=== PATIENT | female | born 1940 | race Caucasian/White ===

== ENCOUNTER → 2017-10-05 12:48 | Outpatient (CLI) | payer MEDICARE, BC, OTHER, SELFPAY ==
--- NOTE | 2017-10-05 12:51 | ADUL_ITS ---
Reason For Study: Surgery aftercare - stricture of artery Right Velocities Ext. Iliac Artery, dist = 52.0 cm./sec. Common Femoral Artery, prox = 46.7 cm./sec. Supf Femoral Artery, prox = 66.8 cm./sec. Supf Femoral Artery, mid = 56.9 cm./sec. Supf Femoral Artery, dist. = 52.8 cm./sec. Profunda Femoral Artery = 48.7 cm./sec. Popliteal Artery, prox. = 141.0 cm./sec. Popliteal Artery, mid = 35.2 cm./sec. Popliteal Artery, dist = 51.1 cm./sec. Post. Tibial Artery, prox = 51.1 cm./sec. Post. Tibial Artery, mid = 49.1 cm./sec. Post. Tibial Artery, dist = 77.8 cm./sec. Peroneal Artery, prox = 35.7 cm./sec. Peroneal Artery, mid = 55.0 cm./sec. Peroneal Artery,dist = 49.5 cm./sec. Ant. Tibial Artery, prox = 53.4 cm./sec. Ant. Tibial Artery, mid = 44.4 cm./sec. Ant. Tibial Artery, dist = 53.4 cm./sec. Procedure Exam performed in department. Interpretation Summary 1. Right leg with no stenosis seen and triphasic flow throughout. Ordering Physician: Aime Hess Referring Physician: Michael Reyez Performed By: Rubina Black RVT
--- NOTE | 2017-10-05 14:40 | LEAS ---
Arterial Study - Arterial Study Arterial Study: Date of scan 10/05/[address] Hess Indication. 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 Next Left lower extremity shows also normal flow at the ankle with duplex showing triphasic flow the posterior tibial with an JIMENEZ 1.13 and triphasic of the dorsalis pedis with an JIMENEZ 0.98 Impression: 1. Bilateral lower extremities with no evidence of significant arterial occlusive disease at rest with an JIMENEZ 1.01 on the right 1.13 on the left
== END ==
PROVIDERS: Family Provider Family Medicine; PCP Family Medicine; Visit Provider Surgery Vascular Surgery
DX: I77.1 Stricture of artery (principal); M79.602 Pain in left arm; D47.3 Essential (hemorrhagic) thrombocythemia; E07.9 Disorder of thyroid, unspecified; I10 Essential (primary) hypertension; Z87.891 Personal history of nicotine dependence; Z48.812 Encounter for surgical aftercare following surgery on the circulatory system
CPT/HCPCS: 93922; 93926

== ENCOUNTER → 2017-10-17 09:45 | Outpatient (CLI) | payer MEDICARE, BC, OTHER, SELFPAY ==
--- NOTE | 2017-10-17 10:00 | RAD_ITS ---
PROCEDURE: Fluoroscopic guided Hip Injection DATE: October 17, 2017. INDICATION: Female, 76 years old. Chronic right hip pain. PHYSICIAN: Adolfo Pena M.D. MEDICATIONS: 6 mg of betamethasone and 3 cc of 1% lidocaine. 2% Lidocaine administered subcutaneously for local anesthesia. ACCESS SITE: Right hip. NEEDLE: 22-gauge spinal needle. FLUOROSCOPY TIME (if supplied): (35 seconds) minutes/seconds FINDINGS: The risks, benefits, and alternatives to the procedure were explained to the patient. The specific risks of bleeding, infection, and neurovascular injury were detailed and accepted. Witnessed informed consent was obtained. A 22-gauge spinal needle was positioned under radiographic fluoroscopic localization. Approximately 2 cc of Isovue-300 instilled for localization purposes. Medication was then injected. The patient tolerated the procedure well without any immediate complications. The patient was placed supine with head elevated and returned to the floor in stable condition. RAD/Inj/Asp Kristofer Jt Should/Hip/Knee IMPRESSION: 1. Successful fluoroscopic guided hip injection. Electronically Signed: Adolfo Pena MD at 10:55 EST Tel [phone], Service support ,
== END ==
PROVIDERS: Family Provider Family Medicine; PCP Family Medicine; Visit Provider Specialist
DX: M16.51 Unilateral post-traumatic osteoarthritis, right hip (principal)
CPT/HCPCS: 20610; 77002; Q9965; J0702

== ENCOUNTER 2017-10-26 12:30 | Emergency (ER) | payer MEDICARE, OTHER, SELFPAY ==
[2017-10-26 12:31] VITALS: BP 158/107; RESP 16; TEMP 37.1; BMI 19.3
[2017-10-26 12:46] VITALS: BP 140/89; PULSE 98; RESP 14; O2SAT 97
--- NOTE | 2017-10-26 13:11 | RAD_ITS ---
STUDY: X-RAY - LEFT WRIST REASON FOR EXAM: Female, 76 years old. Soft tissue swelling. TECHNIQUE: 3 view(s) of the wrist were obtained. COMPARISON: None. FINDINGS: There is demineralization of the radius and ulna. Normal radiocarpal articulation. Normal distal radioulnar articulation. I suspect a nondisplaced avulsion fracture of the triquetrum. Normal carpal articulations. Normal carpometacarpal articulation of the thumb. Normal second through fifth carpometacarpal articulations. There is demineralization of the metacarpal bones. Soft tissue swelling. RAD/Wrist min 3 Views IMPRESSION: I suspect a nondisplaced avulsion fracture of the triquetrum. Soft tissue swelling. Electronically Signed: Adoflo Pena MD at 14:10 EST Tel [phone], Service support ,
--- NOTE | 2017-10-26 13:26 | ED.VISSUMM ---
- ER Visit Summary Date of Service: 10/26/17 Chief Complaint: Left wrist pain History of Present Illness: The patient is a 76 ambidextrous F with 2-3 days of gradual onset pain, redness, swelling in her left wrist. She states it started dorsally and radially, progressing down toward her MCPJ's from there. No fevers or systemic symptoms. No injuries, recent splinters or other wounds, never had this before. No other joints are affected. Hurts to move and palpate. Better to leave it alone. Physical Examination: Well-appearing in no distress. Afebrile with normal vital signs. Her left hand is swollen dorsally, as is the left wrist where there is erythema that blanches and tenderness. The wrist is warmer than the surrounding areas. She is able to perform short arc range of motion of the wrist without any apparent difficulty, she states it is sore to do so. She is limited only at the extremes of wrist flexion/extension. There is no epitrochlear lymphadenopathy or lymphangitis, and NO abscess. The hand is swollen but not especially erythematous or tender. 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 Test Results: White blood count and ESR within normal limits. No bandemia. CRP is elevated at 30. X-ray read by radiology as possible avulsion fracture of the triquetrum. Uric acid level was within normal limits. Emergency Department Course and Treatment: Patient had no injury, therefore fracture of the triquetrum is unlikely the cause of her pain. She did not have improvement with a dose of colchicine. Given the lab results, no specific possible diagnosis is more likely than another. Crystal induced arthritis, cellulitis are both possibilities. I think septic arthritis is less likely given her range of motion, however the treatments of the other 2 possibilities are opposite each other. Therefore I recommended arthrocentesis to evaluate for crystals. We discussed risks and benefits, patient was amenable. I locally anesthetized with 1 cc of plain 1% lidocaine, after prep with isopropyl alcohol, and then prepped again with chlorhexidine, an 18-gauge needle was placed into the joint space distal to the radius from the dorsal aspect, I was only able to aspirate 1 cc of straw-colored clear fluid with a positive string sign. Sent for crystal analysis, which is the only test I will be able to obtain since I had such a little amount of fluid. Crystals returned negative, and lab confirms that no other tests are able to be performed on the fluid available. Will give her an empiric dose of IV Ancef, and discharge her home w/ antibiotics w/ close outpt f/u, returning if worse. She if comfortable w/ this plan. Treatment Plan: Cephalexin 500mg QID x 10d, prn velcro wrist splint, close outpt f/u after the weekend. Disposition: Discharge home Impression: Left wrist cellulitis This note was generated with [employer] dictation software. It may contain incorrect words, spelling, and punctuation that were not noted in review of the chart prior to signing ED Disposition - Plan for ED Patient: Disposition: Home or Assisted Living Chief Complaint: Upper Extremity Injury Instructions: ED Infec Skin Cellulitis Prescriptions: Cephalexin 500 mg PO 4X/DAY #40 cap Referrals: Adam Lowe DO [Primary Care Provider] - 3-5 Days if not improving
[2017-10-26 13:47] LABS: Absolute Lymphocyte Count 0.95 X10^3/ul (0.83-4.51); Absolute Neutrophil Count 5.6 X10^3/uL (2.0-7.7); Basophil# 0.03 X10^3/uL; Basophil% 0.4 % (0-1); Eosinophil# 0.02 X10^3/uL; Eosinophils% 0.3 % (0-5); Hematocrit 39.7 % (37-47); Hemoglobin 13.7 g/dl (12.0-15.0); Lymphocyte # 0.95 X10^3/ul (4.0); Lymphocyte % 12.9 % (19-41); Mean Corp Hgb Conc 34.5 g/gl (32-36); Mean Corpuscular Hgb 43.1 pg (27.0-32.0); Mean Corpuscular Volume 124.8 fL (81-99); Mean Platelet Vol. 10.1 fl (6.2-12.0); Monocyte# 0.71 X10^3/uL; Monocyte% 9.6 % (0-10); Neutrophil # 5.64 X10^3/uL (2.7-7.7); Neutrophil % 76.5 % (47-70); Platelet Count 462 K/mm3 (150-450); RBC Distribution Width CV 12.2 % (11.6-14.6); RBC Distribution Width SD 55.5 fl (35.1-43.9); Red Blood Count 3.18 M/mm3 (4.2-5.4); White Blood Count 7.4 K/mm3 (4.4-11.0)
[2017-10-26 13:48] LABS: POSITIVE COUNT NO; POSITIVE DIFFERENTIAL NO; POSITIVE MORPHOLOGY NO
[2017-10-26 13:50] LABS: Anion Gap 8 (5-15); BUN 21 mg/dL (7-18); BUN/Creat Ratio 16.8 RATIO (10-20); Calcium,Total 9.1 mg/dL (8.5-10.1); Chloride 107 mmol/L (98-107); Creatinine, Serum 1.25 mg/dL (0.55-1.02); EST Glomerular Filtration Rate 44 mL/min (>60); Est Glom Filt Rate - Afr Amer 54 mL/min (>60); Estimated Creatinine Clearance 29.98 ml/min; Glucose 110 mg/dL (74-106); Sodium Level 139 mmol/L (136-145); Uric Acid 4.8 mg/dL (2.6-6.0)
[2017-10-26 14:49] LABS: Erythrocyte Sedimentation Rate 14 mm/hr (0-30)
[2017-10-26 16:33] VITALS: BP 142/78; PULSE 90; RESP 14; O2SAT 98
[2017-10-26 17:22] LABS: Body Fluid QC Type(s) BF1Q; Source- Body Fluid SYNOVIAL
[2017-10-26] MEDS: Cefazolin 1 GM/50 ML BAG IV (17:43)
[2017-10-26 18:17] VITALS: BP 132/68; PULSE 77; RESP 20; O2SAT 96
[2017-10-29 13:14] LABS: Pathologist Review Reviewed
== END 2017-10-26 18:18 | disposition home or self-care (01) ==
PROVIDERS: Emergency Provider Emergency Medicine; Family Provider Family Medicine; PCP Family Medicine
DX: L03.114 Cellulitis of left upper limb (principal); I10 Essential (primary) hypertension
CPT/HCPCS: 20605; 20610; 73110; 80048; 84550; 85025; 85652; 86140; 89060; 96365; 99285; A4216

== ENCOUNTER 2017-11-29 17:14 | Emergency (ER) | payer MEDICARE, OTHER, SELFPAY ==
[2017-11-29 17:16] VITALS: BP 187/98; PULSE 57; RESP 17; TEMP 36.3; O2SAT 97; BMI 19.4
[2017-11-29 17:25] VITALS: BP 180/120; PULSE 58; RESP 16; O2SAT 100
--- NOTE | 2017-11-29 17:32 | ED.VISSUMM ---
- ER Visit Summary Date of Service: 11/29/17 Chief Complaint: [] Elevated blood pressure History of Present Illness: The patient is a 77 F [] history of chronic hypertension she is on diltiazem and clonidine 0.1 mg she indicates she takes her blood pressure multiple times during the day to make sure it is is within normal range she took it today it was about 180/100 she spoke with her wind instrument repairer office and the staff directed her to come to the emergency department Denies head neck chest or abdominal pain numbness weakness no paresthesias she fact has no complaints other than she is thirsty. She indicates she was recently started 1 week ago on additional lisinopril as a new medication, but she did not take that medicine for unspecified reasons. She denies history of NV PE DVT stroke and again she assures me she feels fine and only came to the emergency department because of the instructions of office staff Physical Examination: [] Pressure is elevated to 180/110 she is awake and alert she has no complaints of any kind her head exam is unremarkable cranial nerves are normal the neck is supple the lungs are clear the heart tones are normal abdomen soft nontender upper lower extremities unremarkable her pulses are symmetric she is awake alert moving all 4 extremities normally her NIH is 0 Test Results: [] Emergency Department Course and Treatment: [] All of the above we will discuss case Dr. Fuentes will provide her with clonidine, lisinopril recheck her blood pressure Speak with Dr. Fuentes and I reviewed the patient reports as her med list versus what Dr. Fuentes has prescribed. She is not taking the medications as prescribed He is supposed to be taking diltiazem CD 120 mg twice daily, lisinopril is not new and she is supposed to be taking 5 mg twice daily, Catapres 0.1 mg twice daily and as needed No just prior to giving her the above medications nursing check her blood pressure and without therapy is 150/70 we continue to observe her her blood pressure remained in the normal range we did provide her with 1 dose of lisinopril 10 mg that she is not her medications as prescribed, I also reviewed all of her meds as above answered her questions and she will follow-up with her physicians and return for change in symptoms again she remains completely asymptomatic, I have also cautioned her take her medications as they are prescribed as hypertension can cause life-threatening complications Treatment Plan: [] Disposition: [] Home stable Impression: [] hypertension, noncompliance with medications This note was generated with [employer] dictation software. It may contain incorrect words, spelling, and punctuation that were not noted in review of the chart prior to signing ED Disposition - Plan for ED Patient: Chief Complaint: Hypertension Referrals: Adam Lowe DO [Primary Care Provider] -
[2017-11-29] MEDS: Lisinopril 10 MG Tablet PO (18:09)
--- NOTE | 2017-11-29 18:28 | ED.DEP ---
ED Disposition - Plan for ED Patient: Chief Complaint: Hypertension Instructions: ED HTN Established Referrals: Adam Lowe DO [Primary Care Provider] -
[2017-11-29 18:38] VITALS: BP 153/98; PULSE 52; RESP 16; O2SAT 96
== END 2017-11-29 18:43 | disposition home or self-care (01) ==
PROVIDERS: Emergency Provider Emergency Medicine; Family Provider Family Medicine; PCP Family Medicine
DX: I10 Essential (primary) hypertension (principal); Z91.14 Patient's other noncompliance with medication regimen
CPT/HCPCS: 99282

== ENCOUNTER → 2017-12-18 15:40 | Outpatient (CLI) | payer MEDICARE, OTHER, SELFPAY ==
[2017-12-18 16:45] LABS: AST(SGOT) 18 U/L (15-37); Alanine Aminotransfer ALT/SGPT 17 U/L (13-56); Albumin, Serum 3.9 g/dL (3.2-5.0); Alkaline Phosphatase 76 U/L (45-117); Anion Gap 9 (5-15); BUN 23 mg/dL (7-18); BUN/Creat Ratio 19.3 RATIO (10-20); Calcium,Total 8.7 mg/dL (8.5-10.1); Chloride 106 mmol/L (98-107); Creatinine, Serum 1.19 mg/dL (0.55-1.02); EST Glomerular Filtration Rate 47 mL/min (>60); Est Glom Filt Rate - Afr Amer 57 mL/min (>60); Glucose 96 mg/dL (74-106); Potassium 3.7 mmol/L (3.5-5.1); Protein, Total 7.9 g/dL (6.4-8.2); Sodium Level 137 mmol/L (136-145); Thyroid Stim Hormone (TSH) 2.81 uIU/mL (0.358-3.74)
== END ==
PROVIDERS: Family Provider Family Medicine; PCP Family Medicine; Visit Provider Family Medicine
DX: E03.9 Hypothyroidism, unspecified (principal); I10 Essential (primary) hypertension; E83.42 Hypomagnesemia
CPT/HCPCS: 36415; 80053; 83735; 84443

== ENCOUNTER 2018-01-22 13:12 | Emergency (ER) | payer MEDICARE, OTHER, SELFPAY ==
[2018-01-22 13:13] VITALS: BP 169/108; PULSE 110; RESP 18; TEMP 36.6; O2SAT 98; BMI 20.2
--- NOTE | 2018-01-22 13:57 | EKG12_ITS ---
Test Reason : HTN Blood Pressure : / mmHG Vent. Rate : 098 BPM Atrial Rate : 098 BPM P-R Int : 194 ms QRS Dur : 088 ms QT Int : 354 ms P-R-T Axes : 054 028 077 degrees QTc Int : 451 ms Normal sinus rhythm Normal ECG Confirmed by ELVIS RIVERA ([id number]), desk editor ARACELIS BEASLEY ([id number]) on 02/04/2018 5:00:16 PM Referred By: MACEY Confirmed By:ELVIS RIVERA
[2018-01-22 14:20] VITALS: BP 140/100; PULSE 99; RESP 14; O2SAT 97
--- NOTE | 2018-01-22 14:25 | ED.DCSUM_ITS ---
- ER Visit Summary Date of Service: 01/22/18 Chief Complaint: High blood pressure History of Present Illness: The patient is a 77 F presenting with hypertension. She states that this has been ongoing for the past month. She has been taking her blood pressure at home and it has been running with a systolic in 200s and diastolic in the 100s. She has not been recording the numbers. She states she has had intermittent chest pain and headache but no chest pain or headache today. She is unable to see her primary care physician because she changed insurance. She is on clonidine, Cardizem, lisinopril. Denies other complaints. Physical Examination: Vitals are stable. Blood pressure 169/104. patient is afebrile. Alert no acute distress. HEENT exam is unremarkable. Neck is supple. Lungs are clear and equal bilaterally. Heart is regular rate and rhythm. Abdomen is soft nontender nondistended. Extremities are unremarkable. Skin is warm and dry. No focal neurologic deficit. Remainder of exam is unremarkable. Emergency Department Course and Treatment: EKG is sinus rate of 98 with no acute ischemic changes. Chemistries show BUN 24, creatinine 1.26 which is at her baseline. Troponin is negative. Her repeat blood pressure is 140/[address] medication. Discuss[address] with Dr. Fry who recommends increasing her lisinopril to 10 mg twice daily. Advised to record her blood pressures and follow-up in the office later this week. Advised return to ED for any worsening complaints. Disposition: Discharge home Impression: Hypertension This note was generated with [employer] dictation software. It may contain incorrect words, spelling, and punctuation that were not noted in review of the chart prior to signing ED Disposition - Plan for ED Patient: Chief Complaint: Hypertension Instructions: ED HTN Established Referrals: Adam Lowe DO [Primary Care Provider] - Jacinto Fry MD [STAFF PHYSICIAN] -
[2018-01-22 15:03] LABS: Anion Gap 7 (5-15); BUN 24 mg/dL (7-18); Calcium,Total 9.3 mg/dL (8.5-10.1); Chloride 105 mmol/L (98-107); Creatinine, Serum 1.26 mg/dL (0.55-1.02); EST Glomerular Filtration Rate 44 mL/min (>60); Est Glom Filt Rate - Afr Amer 53 mL/min (>60); Estimated Creatinine Clearance 30.51 ml/min; Glucose 119 mg/dL (74-106); Potassium 3.9 mmol/L (3.5-5.1); Sodium Level 138 mmol/L (136-145)
--- NOTE | 2018-01-22 15:19 | ED.DEP ---
ED Disposition - Plan for ED Patient: Chief Complaint: Hypertension Instructions: ED HTN Established Referrals: Adam Lowe DO [Primary Care Provider] - Jacinto Fry MD [STAFF PHYSICIAN] -
[2018-01-22 15:35] VITALS: BP 174/90; PULSE 76; RESP 18; O2SAT 99
== END 2018-01-22 15:36 | disposition home or self-care (01) ==
PROVIDERS: Emergency Provider Emergency Medicine; Family Provider Family Medicine; PCP Family Medicine
DX: I10 Essential (primary) hypertension (principal); K21.9 Gastro-esophageal reflux disease without esophagitis; E03.9 Hypothyroidism, unspecified; F32.9 Major depressive disorder, single episode, unspecified; F41.9 Anxiety disorder, unspecified; Z79.82 Long term (current) use of aspirin; Z79.899 Other long term (current) drug therapy
CPT/HCPCS: 80048; 84484; 93005; 99283; A4216

== ENCOUNTER 2018-02-25 17:30 | Emergency (ER) | payer MEDICARE, OTHER, SELFPAY ==
[2018-02-25 17:32] VITALS: BP 158/105; PULSE 98; RESP 17; TEMP 36.6; O2SAT 95; BMI 19.2
--- NOTE | 2018-02-25 18:39 | ED.VISSUMM ---
- ER Visit Summary Date of Service: 02/25/18 Chief Complaint: Constipation History of Present Illness: The patient is a 77 F who presents with constipation. She is felt this way for a couple of weeks. She states she tries to go to the bathroom but she cannot get a stool out. She is cramping in her suprapubic area. Denies any nausea, vomiting. She denies urinary symptoms. She has not had a fever. She tried two stool softeners at home but this did not help. Physical Examination: Vital signs reviewed. HEENT exam unremarkable. Heart is regular rate and rhythm without murmurs. Lungs are clear to auscultation. Abdomen is soft with mild suprapubic tenderness to palpation. No distention. Extremities reveal no edema. Skin exam normal. Neurologic exam normal. Test Results: None performed Emergency Department Course and Treatment: Patient received a soapsuds enema. She had a large bowel movement and she feels much better. I will put her on MiraLAX at home. She will follow-up with her PCP Treatment Plan: [] Disposition: Discharge Impression: Constipation This note was generated with [employer] dictation software. It may contain incorrect words, spelling, and punctuation that were not noted in review of the chart prior to signing ED Disposition - Plan for ED Patient: Chief Complaint: Constipation Referrals: Adam Lowe DO [Primary Care Provider] -
--- NOTE | 2018-02-25 19:45 | ED.DEP ---
ED Disposition - Plan for ED Patient: Disposition: Home or Assisted Living Chief Complaint: Constipation Instructions: ED Constipation Prescriptions: Polyethylene Glycol 3350 [Miralax] 17 gm PO DAILY #30 packet Referrals: Adam Lowe DO [Primary Care Provider] -
[2018-02-25 19:56] VITALS: BP 150/98; PULSE 76; RESP 16; O2SAT 98
== END 2018-02-25 19:58 | disposition home or self-care (01) ==
PROVIDERS: Emergency Provider Emergency Medicine; Family Provider Family Medicine; PCP Family Medicine
DX: K59.00 Constipation, unspecified (principal)
CPT/HCPCS: 99285

== ENCOUNTER → 2018-03-07 08:41 | Outpatient (CLI) | payer MEDICARE, OTHER, SELFPAY ==
--- NOTE | 2018-03-07 08:50 | RAD_ITS ---
PROCEDURE: Fluoroscopic guided Hip Injection DATE: March 07, 2018. INDICATION: Female, 77 years old. Chronic right hip pain. PHYSICIAN: Adolfo Pena M.D. MEDICATIONS: 6 mg of betamethasone and 3 cc of 1% lidocaine. 2% lidocaine administered subcutaneously for local anesthesia. ACCESS SITE: Right hip. NEEDLE: 22-gauge spinal needle. FLUOROSCOPY TIME (if supplied): (32 seconds) minutes/seconds FINDINGS: The risks, benefits, and alternatives to the procedure were explained to the patient. The specific risks of bleeding, infection, and neurovascular injury were detailed and accepted. Witnessed informed consent was obtained. A 22-gauge spinal needle was positioned under radiographic fluoroscopic localization. Approximately 2 cc of azygos 300 instilled for localization purposes. Medication was then injected. The patient tolerated the procedure well without any immediate complications. The patient was placed supine with head elevated and returned to the floor in stable condition. RAD/Inj/Asp Kristofer Jt Should/Hip/Knee IMPRESSION: 1. Successful fluoroscopic guided hip injection. Electronically Signed: Adolfo Pena MD at 10:36 EDT Tel [phone], Service support ,
== END ==
PROVIDERS: Family Provider Family Medicine; PCP Family Medicine; Visit Provider Physician Assistant
DX: M16.51 Unilateral post-traumatic osteoarthritis, right hip (principal)
CPT/HCPCS: 20610; 77002; Q9965; J0702

== ENCOUNTER 2018-03-11 16:46 | Emergency (ER) | payer MEDICARE, OTHER, SELFPAY ==
[2018-03-11 16:47] VITALS: BP 188/121; PULSE 94; RESP 21; TEMP 36.6; O2SAT 98; BMI 19.3
[2018-03-11 17:04] VITALS: BP 165/116; PULSE 91; RESP 16; O2SAT 97
[2018-03-11] MEDS: cloNIDine HCl 0.1 MG Tablet PO (17:47)
--- NOTE | 2018-03-11 18:06 | ED.DCSUM_ITS ---
- ER Visit Summary Date of Service: 03/11/18 Chief Complaint: Elevated blood pressure History of Present Illness: The patient is a 77 F who presents with elevated blood pressure. She has a history of poorly controlled hypertension. She checks her blood pressure multiple times a day. She is on multiple medications however she does not have her list with her and was unable to tell me exactly what she takes and when. However she does note that she takes lisinopril twice a day and diltiazem twice a day. She takes clonidine as needed. It is unclear how often or when she takes this. She is asymptomatic. She notes that she was severely elevated last night and reports her diastolic blood pressure was 140. She was at an orthopedic appointment today her blood pressure was elevated shows she was advised to be evaluated in the emergency department. Physical Examination: Initial blood pressure 188/121, vitals otherwise unremarkable Heart regular rate and rhythm Lungs clear Abdomen soft Alert Patient does appear slightly anxious repetitively looking at the monitor Test Results: Not indicated Emergency Department Course and Treatment: Patient presents with asymptomatic elevated blood pressure. This is been a recurrent issue for her. She notes that she is supposed to take clonidine when her blood pressure is very high as needed. She did not take this today. She was given 0.1 mg of oral clonidine and on repeat her blood pressure is 155/98. I do believe there is likely a component of whitecoat hypertension as well. She was advised to follow-up with her [employer] soa developer who manages her blood pressure and to call tomorrow for an appointment. She understands to return for new or worsening symptoms and was discharged home. Treatment Plan: [] Disposition: Discharge Impression: Uncontrolled hypertension This note was generated with [employer] dictation software. It may contain incorrect words, spelling, and punctuation that were not noted in review of the chart prior to signing ED Disposition - Plan for ED Patient: Chief Complaint: Hypertension Referrals: Adam Lowe DO [Primary Care Provider] -
--- NOTE | 2018-03-11 18:06 | ED.DEP ---
ED Disposition - Plan for ED Patient: Chief Complaint: Hypertension Instructions: ED Hypertension Conf Out Of Control Referrals: Adam Lowe DO [Primary Care Provider] - Jacinto Fry MD [STAFF PHYSICIAN] -
[2018-03-11 18:13] VITALS: BP 143/86; PULSE 87; RESP 14; O2SAT 99
== END 2018-03-11 18:14 | disposition home or self-care (01) ==
PROVIDERS: Emergency Provider Emergency Medicine; Family Provider Family Medicine; PCP Family Medicine
DX: I10 Essential (primary) hypertension (principal); F41.9 Anxiety disorder, unspecified
CPT/HCPCS: 99283

== ENCOUNTER 2018-04-05 16:00 | Inpatient (IN) | payer MEDICARE, OTHER, SELFPAY ==
[2018-04-05] VITALS (18 sets, daily range): BP systolic 130–190; BP diastolic 80–137; PULSE 61–99; RESP 10–22; TEMP 36.1–36.7; O2SAT 94–100; BMI 19.3; BMI 18.8; BMI 18.9
--- NOTE | 2018-04-05 16:19 | CT_ITS ---
STUDY: CTA NECK WITH CONTRAST REASON FOR EXAM: Female, 77 years old. Hypertension and right arm weakness RADIATION DOSAGE (If Supplied By Facility): CTDIvol = ( 27.63 ) mGy, DLP = ( 491.02 ) mGycm TECHNIQUE: CT angiography with multi-detector data acquisition was performed from the aortic arch to the skull base following intravenous administration of 100 ml of Isovue 370 contrast. MIP images were reconstructed from the axial data set. Post-processing of the angiographic images was performed, with multiplanar reformation and 3D reconstruction. Individualized dose optimization techniques were used for this CT. COMPARISON: None. FINDINGS: AORTIC ARCH: Normal visualized aortic arch. Normal origins of the brachiocephalic, left common carotid, and left subclavian arteries. RIGHT CAROTID ARTERIES: Normal right common carotid artery (CCA). Normal right common carotid bulb. Normal origin of the right internal carotid (ICA) artery without a hemodynamically significant stenosis. Normal visualized cervical portion of the right internal carotid artery. Normal origin of the right external carotid artery (ECA). LEFT CAROTID ARTERIES: Normal left common carotid artery (CCA). Normal left common carotid bulb. Normal origin of the left internal carotid (ICA) artery without a hemodynamically significant stenosis. Normal visualized cervical portion of the left internal carotid artery. Normal origin of the left external carotid artery (ECA). VERTEBRAL ARTERIES: Normal bilateral vertebral arteries. Moderate dextroconvex scoliosis. CT/CTA Neck W/WO Contrast IMPRESSION: Normal bilateral cervical carotid and vertebral arteries. Electronically Signed: Tashi Cary MD at 18:59 EDT , Service support ,
--- NOTE | 2018-04-05 16:19 | CT_ITS ---
STUDY: CTA OF THE BRAIN REASON FOR EXAM: Female, 77 years old. Right arm weakness, hypertension RADIATION DOSAGE (If Supplied By Facility): CTDIvol = ( 44.99 ) mGy, DLP = ( 734.24 ) mGycm TECHNIQUE: CT angiography was performed with a multi-detector CT scanner. Data acquisition was obtained from the skull base through the vertex following intravenous administration of 100 ml of Isovue 370. MIP images were reconstructed from the axial data set. Post-processing of the angiographic images was performed, with multiplanar reformation and 3D reconstruction. Individualized dose optimization techniques were used for this CT. COMPARISON: None. FINDINGS: The soft tissues are unremarkable. The osseous structures are unremarkable. Normal size ventricles and extra-axial spaces for the patient's age. There are scattered areas of decreased attenuation within the white matter tracts of the supratentorial brain. There are a few hypodensities in the basal ganglia, and in the right thalamus. No abnormalities are seen in the brainstem. The cerebellum is unremarkable. There are moderate vascular calcifications. The choroid plexus on the right is more dense than the left. There are prominent venous structures in the posterior fossa. There is no intracranial hemorrhage. There are no findings of acute ischemia. There is a 2 cm retention cyst in the lower right maxillary sinus. There is minimal fluid or mucosal thickening in the left sphenoid sinus. The petrous carotid arteries are normal in appearance. Normal right cavernous carotid artery with a normal supraclinoid bifurcation. Normal left cavernous carotid artery with a normal supraclinoid bifurcation. Normal right A1 segment of the anterior cerebral artery. Normal left A1 segment of the anterior cerebral artery. Normal intact anterior communicating artery (ACOM). Normal bilateral A2 segments of the anterior cerebral arteries. Normal right M1 and M2 segments of the middle cerebral arteries, with a normal M1 bifurcation. Normal left M1 and M2 segments of the middle cerebral arteries, with a normal M1 bifurcation. Normal right posterior communicating artery (PCOM). There is a persistent origin of the left posterior cerebral artery which is a normal anatomic variant. Normal bilateral distal vertebral arteries. The basilar artery is tortuous but patent. The visualized bilateral superior cerebellar (SCA) arteries are within normal limits. Normal bilateral P1, P2 and visualized P3 segments of the posterior cerebral arteries. There is no demonstrated aneurysm of the [place]. There is no demonstrated enhancement of the visualized brain. CT/CTA Head W/WO Contrast IMPRESSION: There is no demonstrated aneurysm or hemodynamically significant stenosis. There is no acute hemorrhage. Small hypodensities in the basal ganglia and in the right thalamus likely represent age indeterminate lacunar infarcts. MRI can be obtained for further evaluation. There is mild left sphenoid sinusitis. Electronically Signed: Gilma Llanes MD at 18:42 EDT Tel Direct: [phone], Service support ,
--- NOTE | 2018-04-05 16:25 | ED.DCSUM_ITS ---
- ER Visit Summary Date of Service: 04/05/18 Chief Complaint: Hypertension, right arm weakness History of Present Illness: The patient is a 77 F whose had 3 episodes this past week of sudden right arm weakness. She states it just hangs to her side and she cannot move it. This lasts for a few minutes and then resolves. Patient is very anxious stating that she had several family members with strokes. She states her blood pressure has been elevated today and difficult to control. She has taken 3 doses of her clonidine 0.1 mg each over the course of the day, most recent dose just prior to arrival. Physical Examination: Vital signs include blood pressure 171/137, temperature 97 , heart rate 99, respiratory rate 22, pulse ox 97% on room air. Patient is sitting upright in bed. She is anxious but in no acute distress. Head and neck examination is unremarkable. Heart is regular rate and rhythm. Lung sounds are clear. Abdomen is soft and nontender. Neuro exam reveals an NIH score of 0 at this time. Test Results: EKG is sinus at 83 with no sign of acute ischemia. Portable chest x-ray shows no acute process. CBC is normal. Chemistry studies significant for creatinine 1.25. Coags normal. Troponin negative. CTA of the head shows no stenosis or hemorrhage. There is age and remote lacunar infarction noted. CTA of the neck is normal. Emergency Department Course and Treatment: Patient was not given anything further for blood pressure she had just taken clonidine before arrival. Blood pressure came down to 130/81. On repeat exam, blood pressure is back up to the 150s-170s systolic. This will be closely monitored. I recommended hospitalization for further stroke/TIA workup. Treatment Plan: [] Disposition: Admit Impression: TIAs This note was generated with [employer] dictation software. It may contain incorrect words, spelling, and punctuation that were not noted in review of the chart prior to signing ED Disposition - Plan for ED Patient: Chief Complaint: Hypertension Referrals: Adam Lowe DO [Primary Care Provider] -
--- NOTE | 2018-04-05 16:45 | RAD_ITS ---
STUDY: X-RAY CHEST REASON FOR EXAM: Female, 77 years old. Chest pain, hypertension TECHNIQUE: A single frontal view of the chest was obtained. COMPARISON: July 05, 2017 FINDINGS: The lungs are underaerated. There are no focal airspace opacities. There is no demonstrated pleural abnormality. The cardiac silhouette is normal in size. The mediastinum and hilar regions are unremarkable. Normal visualized pulmonary arteries. There is atherosclerotic calcification of the thoracic aorta. There are diffuse degenerative changes of the visualized spine. There is S-shaped scoliosis of the spine with levoscoliosis of the thoracic spine and dextroscoliosis of the lumbar spine. The visualized ribs, clavicles, and shoulders are unremarkable. Cholecystectomy clips are present. RAD/Chest 1 View IMPRESSION: No acute cardiopulmonary abnormalities. Electronically Signed: Gilma Llanes MD at 17:15 EDT Tel Direct: [phone], Service support ,
[2018-04-05 16:56] LABS: Bedside Glucose 96 mg/dL (70-110)
[2018-04-05 17:10] LABS: Absolute Lymphocyte Count 0.91 X10^3/ul (0.83-4.51); Basophil# 0.01 X10^3/uL; Basophil% 0.3 % (0-1); Eosinophil# 0.01 X10^3/uL; Eosinophils% 0.3 % (0-5); Hematocrit 37.9 % (37-47); Hemoglobin 12.7 g/dl (12.0-15.0); Lymphocyte # 0.91 X10^3/ul (4.0); Lymphocyte % 29.4 % (19-41); Mean Corp Hgb Conc 33.5 g/gl (32-36); Mean Corpuscular Hgb 40.4 pg (27.0-32.0); Mean Corpuscular Volume 120.7 fL (81-99); Monocyte# 0.21 X10^3/uL; Monocyte% 6.8 % (0-10); Neutrophil # 1.95 X10^3/uL (2.7-7.7); Neutrophil % 62.9 % (47-70); Platelet Count 317 K/mm3 (150-450); RBC Distribution Width CV 13.2 % (11.6-14.6); RBC Distribution Width SD 57.3 fl (35.1-43.9); Red Blood Count 3.14 M/mm3 (4.2-5.4); White Blood Count 3.1 K/mm3 (4.4-11.0)
[2018-04-05 17:11] LABS: Anion Gap 8 (5-15); BUN 27 mg/dL (7-18); BUN/Creat Ratio 21.6 RATIO (10-20); Calcium,Total 8.8 mg/dL (8.5-10.1); Chloride 107 mmol/L (98-107); Creatinine, Serum 1.25 mg/dL (0.55-1.02); EST Glomerular Filtration Rate 44 mL/min (>60); Est Glom Filt Rate - Afr Amer 54 mL/min (>60); Estimated Creatinine Clearance 29.41 ml/min; Glucose 96 mg/dL (74-106); POSITIVE COUNT NO; POSITIVE DIFFERENTIAL NO; POSITIVE MORPHOLOGY NO; Potassium 3.8 mmol/L (3.5-5.1); Sodium Level 139 mmol/L (136-145)
[2018-04-05 17:14] LABS: International Normalized Ratio 0.9; Prothrombin Time (Protime)PT. 12.4 SECONDS (11.7-14.9)
[2018-04-05 17:15] LABS: Partial Thromboplast Time 30.4 Seconds (24.1-36.2)
--- NOTE | 2018-04-05 19:36 | PCM.HP.STD ---
Problem List (1) Stroke-like symptoms Status: Acute History of Present Illness Date of Admission: 04/05/18 Chief Complaint: Strokelike symptoms x 1 week The patient is a 77 year old F with a significant history of CKD, hypertension, seizures,hypothyroidism, DVT, CKD, depression/anxiety, PVD, and Essential Thrombocytosis who presents because of a right arm weakness ?1 week. Patient states that 3 times in 3 days of this week (week of admission ) her right was momentarily weak. The last time she had the weakness of her right arm was 2 days ago. Also, she thinks that she may have some blurry vision this week. She denies any speech changes or confusion. Because of a family history of stroke, her sister advised today to come to the emergency department. Also she notes elevated blood pressure at home which has been difficult to control with her home Clonidine. Past Medical History Past Medical History (Chronic Problems): Chronic Problems (Last Updated 04/06/18 @ 03:47 by Wilder Mayfield MD) C. difficile colitis (Chronic) Hypothyroidism (Chronic) Hypertension (Chronic) Depression (Chronic) Anxiety (Chronic) History of DVT (deep vein thrombosis) (Chronic) PVD (peripheral vascular disease) (Chronic) CKD (chronic kidney disease), stage III (Chronic) Osteopenia (Chronic) Medical History: Medical History (Last Updated 04/06/18 @ 03:47 by Wilder Mayfield MD) Essential thrombocytosis D47.3 Allergies dichloralphenazone [From Midrin] Allergy (Verified 04/05/18 16:01) Other isometheptene mucate [From Midrin] Allergy (Verified 04/05/18 16:01) Other lactose Adverse Reaction (Verified 04/05/18 16:01) Upset Stomach shellfish derived Adverse Reaction (Verified 04/05/18 16:01) Vomiting Home Medications: Ambulatory Orders Medication Instructions Recorded Anagrelide HCl [Agrylin] 0.5 mg PO TID 01/22/18 Aspirin [Aspirin, Baby] 81 mg PO DAILY@0800 01/22/18 Buspirone HCl 30 mg PO BID 01/22/18 Cilostazol [Pletal] 100 mg PO BIDAC 01/22/18 Clonidine HCl 0.1 mg PO BID 01/22/18 Colestipol Tablet [Colestid Tablet] 2 gm PO TID 01/22/18 Diltiazem HCl [Cardizem] 120 mg PO BID 01/22/18 Fluoxetine [Prozac] 20 mg PO DAILY 01/22/18 Hydroxyurea [Hydrea] 500 mg PO BID 01/22/18 Levothyroxine [Synthroid] 75 mcg PO DAILY 01/22/18 Lisinopril [Zestril] 10 mg PO DAILY 01/22/18 Mirtazapine [Remeron] 15 mg PO QHS 01/22/18 Pantoprazole Sodium [Protonix] 40 mg PO DAILY 01/22/18 Topiramate [Topamax] 100 mg PO BID 01/22/18 Polyethylene Glycol 3350 [Miralax] 17 gm PO DAILY PRN 04/05/18 Surgical History: hysterectomy - Adenoidectomy, tonsillectomy, - - Right Hip cephalo medullary nail, T+A, Hysterectomy, Cholecystectomy (open). Psychiatric History: Anxiety, Depression [employer] History: No pertinent [employer] history Smoking Status: Former smoker Tobacco Use: Non-smoker Alcohol: Occasional - *Family History Maternal History Items: Stroke Paternal History Items: Heart Disease Review of Systems Constitutional: Denies: Chills, Fever, Weight Change Eyes: Reports: Blurred vision - Not present at the moment HEENT: Denies: Head Aches, Sinus Congestion, Sinus Drainage Cardiovascular: Denies: Chest Pain, Palpitations Respiratory: Denies: Cough, Shortness of breath at rest, Sputum production Gastrointestinal: Denies: Abdominal Pain, Nausea, Vomiting Genitourinary: Denies: Dysuria Musculoskeletal: Denies: Joint Pain, Joint Tenderness Skin: Denies: Rash, Wounds Neurological: Reports: Focal weakness - Not present at the moment Psychiatric: Denies: Anxiety, Depression, Homicidal Ideations, Suicidal Ideations Hematologic/ Lymphatic: Denies: Easy Bruising, Easy Bleeding VTE Information - Inpt Only VTE Present on Admission: No VTE Mechan Device Prophylaxis: SCD's VTE Pharm Prophylaxis ordered?: Yes Patient Problems: Active and Suspected Problems (Last Updated 04/06/18 @ 03:47 by Wilder Mayfield MD) Stroke-like symptoms (Acute) - Physical Exam General: Alert, Oriented x3, Cooperative HEENT: Atraumatic, PERRLA, EOMI, Normocephalic Neck: Supple, No JVD, Negative Carotid Bruits Lungs: Clear to auscultation, Normal air movement Cardiovascular: Regular rate, No murmurs, Tachycardic Abdomen: Bowel Sounds Present, Soft, Non Tender Extremities: No edema, Capillary Refill Less than 3 Seconds Skin: No rashes, No breakdown Musculoskeletal: No Tenderness to Palpation of Joints or Extremities Neurological: Cranial nerves II-XII grossly intact, Deep Tendon Reflexes 2+/4 and Symmetrical, Neuro grossly intact, Muscle tone normal Psych/Mental Status: Anxious Vital Signs Temp Pulse Resp BP Pulse Ox 97 F L 69 14 153/100 H 97 04/05/18 16:02 04/05/18 19:00 04/05/18 19:00 04/05/18 19:00 04/05/18 19:00 Oxygen Delivery Method Room Air Weight: 47.9 kg Body Mass Index (BMI) 19.3 Finger Stick Blood Glucose 96 Laboratory Tests Past 24 Hrs 04/05/18 04/05/18 04/05/18 16:35 16:35 16:35 WBC 3.1 L RBC 3.14 L Hgb 12.7 Hct 37.9 MCV 120.7 H MCH 40.4 H MCHC 33.5 RDW 13.2 RDW Differential 57.3 H Plt Count 317 MPV 10.0 Immature Gran % (Auto) 0.300 Neut % (Auto) 62.9 Lymph % (Auto) 29.4 Cooke % (Auto) 6.8 Eos % (Auto) 0.3 Baso % (Auto) 0.3 Absolute Neuts (auto) 2.0 Absolute Lymphs (auto) 0.91 Total Counted Not Reportable PT 12.4 INR 0.9 APTT 30.4 Sodium 139 Potassium 3.8 Chloride 107 Carbon Dioxide 24.0 Anion Gap 8 BUN 27 H Creatinine 1.25 H Estim Creat Clear Calc 29.41 Est GFR (MDRD) Af Amer 54 L Est GFR (MDRD) Non-Af 44 L BUN/Creatinine Ratio 21.6 H Glucose 96 Calcium 8.8 Troponin I < 0.015 POC Glucose 04/05/18 16:46 POC Glucose 96 Assessment/Plan All Active Problems (Last Updated 04/06/18 @ 03:47 by Wilder Mayfield MD) Stroke-like symptoms (Acute) Hip fracture (Resolved) The patient is a 77 year old F with a significant history of CKD, hypertension, seizures,hypothyroidism, DVT, CKD, depression/anxiety, PVD, and Essential Thrombocytosis who presents because of a right arm weakness and probable blurry vision concerning for TIA, evolving stroke or stroke. Strokelike symptoms CT/CTA head and neck did not show acute pathology but likely age-indeterminate lacunar infarcts Echo ordered. MRI of brain ordered. Ativan enroute to MRI because of anxiety. Aspirin and Lipitor ordered ST/PT/OT therapy. Neurology consult. Malignant hypertension Highest blood pressure in emergency department 190/121 Reportedly her last focal weakness was 2 days ago. Home blood pressure medication lisinopril, clonidine and diltiazem resumed. Labetalol as needed ordered. Seizures Seizure precautions Topamax continued PVD Cilostazol continued Essential thrombocytosis Review of records showed macrocytosis, elevated platelet counts or normal platelet count. Patient follows up with Dr. Langston, veneer stock layer at [facility] Anagrelide, hydroxyurea and aspirin continued Hypothyroidism Synthroid continued Depression/anxiety Buspirone, fluoxetine and mirtazapine continued CKD Review of records show that her creatinine is at baseline. DVT prophylaxis Subcutaneous heparin. Code Visit OBSV E&M: 82013 Initial observation care L3
--- NOTE | 2018-04-05 20:16 | NURSING ---
Called [facility] ED charge nurse, elfego to send patient to the floor.
--- NOTE | 2018-04-05 20:37 | MRI_ITS ---
STUDY: MRI BRAIN WITHOUT CONTRAST REASON FOR EXAM: Female, 77 years old. slurred speech, seizures x 1 week. TECHNIQUE: Standardized multiplanar fat and water weighted pulse sequences were obtained. COMPARISON: 04/05/2018 CT of the head FINDINGS: Normal size of the ventricles and extra-axial spaces for the patient's age. There are multiple white matter hyperintensities, distributed throughout the deep white matter tracts of the cerebral hemispheres, consistent with moderate chronic white matter ischemic changes. There is a 3 mm focus of restrained diffusion at the right centrum semiovale (axial image #20 series 4) there is Doppler signal on ADC map, consistent with acute infarction. There is bilateral thalamic chronic lacunar infarcts. Normal flow voids within the major intracranial circulation suggesting patency by spin echo criteria. Normal sella turcica, pituitary gland, infundibular stalk, optic chiasm and hypothalamus. Normal tectal plate and pineal gland. Normal midbrain, sabi and medulla. There is mild prominence of the vermian folia, consistent with atrophy of the vermis. The cerebellar hemispheres are normal. Normal basal cisterns. Normal bilateral temporal bones. Normal bilateral internal auditory canals. MRI/Brain without Contrast IMPRESSION: Acute lacunar infarct of the right centrum semiovale. Moderate chronic microvascular ischemic changes and lacunar infarcts. N.B. : The above information has been verbally conveyed by Saqib Campbell MD to karina liang, Referring Physician, on 04/06/2018 11:14:34 (ET). Electronically Signed: Saqib Campbell MD at 11:14 EDT Tel , Service support ,
--- NOTE | 2018-04-05 20:37 | ECHOD_ITS ---
Reason For Study: TIA/CVA Procedure This was a 2D Doppler, Color Flow transthoracic echocardiogram. Exam performed portable in patient room. Left Ventricle Normal LV size. Mild concentric left ventricular hypertrophy. Left ventricular systolic function is normal. The estimated ejection fraction is 65 %. Stage 1 diastolic dysfunction. Right Ventricle Normal size and thickness. Normal systolic function. Atria Normal left atrium. Normal right atrium. Mitral Valve The mitral valve is structurally normal. No prolapse or stenosis seen. Tricuspid Valve Mild tricuspid valve insufficiency. Normal pulmonary artery pressure. Aortic Valve Aortic sclerosis, no stenosis. Pulmonic Valve Trivial pulmonic valve insufficiency. Great Vessels Normal aortic root. Pericardium/Pleural Epicardial fat. Medication Performed a rapid injection of agitated mix of 9 cc saline and 1cc air to assess for atrial septal defect. MMode/2D Measurements & Calculations LVIDd: 3.4 cm IVSd: 1.3 cm LVOT diam: 2.0 cm LVIDs: 1.9 cm LVPWd: 0.94 cm LVOT area: 3.2 cm2 FS: 44.8 % Ao root diam: 3.0 cm LAV(MOD-sp2): 55.0 ml LA dimension: 3.4 cm Aortic Valve Planimetry: 1.4 cm2 Time Measurements MV dec time: 0.22 sec Doppler Measurements & Calculations MV E max josias: 58.2 cm/sec Lat Peak E' Josias: 8.5 cm/sec Med Peak E' Josias: 2.6 cm/sec MV A max josias: 118.6 cm/sec E/E' lat: 6.9 E/E' med: 22.0 MV E/A: 0.49 MV V2 max: 122.3 cm/sec MV P1/2t max josias: 84.7 cm/sec Ao V2 max: 169.5 cm/sec MV max P.0 mmHg MV P1/2t: 97.6 msec Ao max P.5 mmHg MV V2 mean: 67.4 cm/sec MV dec slope: 254.2 cm/sec2 Ao V2 mean: 116.2 cm/sec MV mean P.1 mmHg MVA(P1/2t): 2.3 cm2 Ao mean P.1 mmHg MV V2 VTI: 28.1 cm Ao V2 VTI: 32.7 cm MVA(VTI): 3.2 cm2 MARYCRUZ(I,D): 2.8 cm2 MARYCRUZ(V,D): 2.6 cm2 LV V1 max: 138.0 cm/sec SV(LVOT): 90.0 ml PA V2 max: 82.8 cm/sec LV V1 max P.6 mmHg LV V1 mean P.9 mmHg LV V1 mean: 92.3 cm/sec LV V1 VTI: 27.9 cm TR max josias: 233.5 cm/sec TR max P.8 mmHg Interpretation Summary Mild concentric left ventricular hypertrophy. The estimated ejection fraction is 65 %. Aortic sclerosis, no stenosis. Ordering Physician: Wilder Mayfield Referring Physician: Jerry Junior Performed By: Grant Odell RCS
[2018-04-05] MEDS: 0.9% NaCl Peripheral Flush Adult/Peds IV (22:25)
[2018-04-05] MEDS: Topiramate 100 MG Tablet PO (22:25)
[2018-04-05] MEDS: Heparin Injection (Vial) 5,000 UNIT/ML VIAL 5000 UNIT SC (22:26)
[2018-04-05] MEDS: cloNIDine HCl 0.1 MG Tablet PO (22:26)
[2018-04-05] MEDS: Hydroxyurea 500 MG Capsule PO (22:26)
[2018-04-05] MEDS: busPIRone 15 MG TABLET 30 MG PO (22:26)
[2018-04-05] MEDS: Mirtazapine 15 MG Tablet PO (22:26)
[2018-04-05] MEDS: dilTIAZem CD 120 MG Capsule PO (22:26)
[2018-04-06] VITALS (12 sets, daily range): BP systolic 114–140; BP diastolic 72–88; PULSE 66–78; RESP 16; TEMP 36.6–36.8; O2SAT 95–100; BMI 18.8
[2018-04-06] MEDS: Levothyroxine 75 MCG Tablet PO (06:04)
[2018-04-06 06:47] LABS: Anion Gap 13 (5-15); BUN 26 mg/dL (7-18); BUN/Creat Ratio 25.5 RATIO (10-20); Calcium,Total 8.3 mg/dL (8.5-10.1); Chloride 111 mmol/L (98-107); Cholesterol 155 mg/dL (200); Creatinine, Serum 1.02 mg/dL (0.55-1.02); EST Glomerular Filtration Rate 56 mL/min (>60); Est Glom Filt Rate - Afr Amer 68 mL/min (>60); Estimated Creatinine Clearance 35.28 ml/min; Glucose 89 mg/dL (74-106); High Density Lipoprotein 60 mg/dL; Potassium 3.8 mmol/L (3.5-5.1); Sodium Level 143 mmol/L (136-145); Triglycerides 182 mg/dL; Very Low Density Lipoprotein 36 mg/dL (5-40)
[2018-04-06] MEDS: Cilostazol 50 MG Tablet 100 MG PO (07:03)
[2018-04-06] MEDS: Loperamide 2 MG Capsule PO (07:03)
[2018-04-06] MEDS: Aspirin 81 MG TAB.CHEW PO (08:57)
[2018-04-06] MEDS: busPIRone 15 MG TABLET 30 MG PO (08:57)
[2018-04-06] MEDS: FLUoxetine 20 MG Capsule PO (08:58)
[2018-04-06] MEDS: Pantoprazole Sodium 40 MG Tablet PO (08:58)
[2018-04-06] MEDS: Atorvastatin Calcium 80 MG Tablet PO (08:58)
[2018-04-06] MEDS: Hydroxyurea 500 MG Capsule PO (08:58)
[2018-04-06] MEDS: Topiramate 100 MG Tablet PO (08:59)
[2018-04-06] MEDS: 0.9% NaCl Peripheral Flush Adult/Peds IV (09:31)
[2018-04-06] MEDS: LORazepam 2 MG/ML Syringe 1 MG IV (09:31)
[2018-04-06] MEDS: Heparin Injection (Vial) 5,000 UNIT/ML VIAL 5000 UNIT SC (10:58)
--- NOTE | 2018-04-06 12:40 | CASEMGMT ---
SEE PASTOR ROMANO ASSESS LINK: D/C plan undetermined. Intro role to PASTOR ROMANO. Pt resting in bed. in room with pt. Both pt and willing to participate in assessment and pt is able to answer all questions appropriately. Pt states lives @ home with her and they share responsibilities of the home. Pt states they lives in a one-story home and she ambulates with a cane. Pt reports she and her both drive and her is able to provide transportation upon discharge. Pt states her currently has [facility] and that she would be interested in having them provide services for her upon discharge. Awaiting MRI results. CM to follow for discharge planning needs that may arise. Niecy GUTIERREZ RN, CM
--- NOTE | 2018-04-06 15:37 | DCINST_ITS ---
- Discharge Diagnoses Current Active Problems: Current Active and Chronic Problems (Last Updated 04/06/18 @ 03:47 by Wilder Mayfield MD) Stroke-like symptoms (Acute) You will use the following diet at home:: No restrictions Your food should be the consistency of: Regular Your liquids should be the consistency of: Regular/Thin Discharge Activity: Return to Normal Activity, - - use cane if needed Allergies/Adverse Reactions: Allergies dichloralphenazone [From Midrin] Allergy (Verified 04/05/18 16:01) Other isometheptene mucate [From Midrin] Allergy (Verified 04/05/18 16:01) Other lactose Adverse Reaction (Verified 04/05/18 16:01) Upset Stomach shellfish derived Adverse Reaction (Verified 04/05/18 16:01) Vomiting Medications to take at Discharge Anagrelide HCl [Agrylin] 0.5 mg PO TID 01/22/18 Aspirin [Aspirin, Baby] 81 mg PO DAILY@0800 01/22/18 Buspirone HCl 30 mg PO BID 01/22/18 Cilostazol [Pletal] 100 mg PO BIDAC 01/22/18 Clonidine HCl 0.1 mg PO BID 01/22/18 Colestipol Tablet [Colestid Tablet] 2 gm PO TID 01/22/18 Diltiazem HCl [Cardizem] 120 mg PO BID 01/22/18 Fluoxetine [Prozac] 20 mg PO DAILY 01/22/18 Hydroxyurea [Hydrea] 500 mg PO BID 01/22/18 Levothyroxine [Synthroid] 75 mcg PO DAILY 01/22/18 Lisinopril [Zestril] 10 mg PO DAILY 01/22/18 Mirtazapine [Remeron] 15 mg PO QHS 01/22/18 Pantoprazole Sodium [Protonix] 40 mg PO DAILY 01/22/18 Topiramate [Topamax] 100 mg PO BID 01/22/18 Polyethylene Glycol 3350 [Miralax] 17 gm PO DAILY PRN 04/05/18 Aspirin [Aspirin, Baby] 81 mg PO DAILY@0800 tab.chew 04/06/18 Atorvastatin Calcium [Lipitor] 40 mg PO QHS #30 tab 04/06/18 Clopidogrel Bisulfate [Plavix] 75 mg PO DAILY #30 tab 04/06/18 The following prescriptions were given: Atorvastatin Calcium [Lipitor] 40 mg PO QHS #30 tab Clopidogrel Bisulfate [Plavix] 75 mg PO DAILY #30 tab Primary Care Physician: Adam Lowe DO [Primary Care Provider] - Please follow up with your Primary Care Physician in: in 1 week Test Results: Test results from this visit will be discussed in further detail at your follow- up appointment, if applicable. Please Follow Up With: Pastor Nichols MD When: in 2 weeks [phone]
--- NOTE | 2018-04-06 16:39 | CASEMGMT ---
SOCIAL WORK: Referral received from hospitality recruiter this afternoon for SW consult for skilled HHC referral prior to patient discharge today. Met with patient and in her room; introduced self and SW role. Discussed option of skilled HHC with them. They requested [facility] for nursing; patient has had this service in the past. She denies any other discharge needs or concerns; concurs. Face to face completed and signed by physician. Contact initiated with nurse, Kayleen, with [facility] to initiate referral; order, face to face, demographics including insurance information, DC Instructions and H&P faxed to number provided of [phone]. Transmission record of receipt received. Kayleen states that someone will contact patient on Sunday or Sunday. Patient and notified and in agreement. Update provided to PASTOR ROMANO. PLAN: Return home with with new referral in place to [facility] for jail visits. Further needs denied. Shauna LOPEZ,KEVINA
--- NOTE | 2018-04-07 16:52 | DS.PCM_ITS ---
Discharge Date and Diagnosis Date of Admission: 04/05/18 Date of Discharge: 04/06/18 - Primary Discharge Diagnosis #1 acute ischemic lacunar infarct of the right centrum semiovale #2 remote lacunar infarctions #3 chronic kidney disease stage III #4 hypertension #5 depression #6 Recent episodes of right arm paresis-etiology unclear - Secondary Discharge Diagnosis Chronic Problems (Last Updated 04/06/18 @ 03:47 by Wilder Mayfield MD) C. difficile colitis (Chronic) Hypothyroidism (Chronic) Hypertension (Chronic) Depression (Chronic) Anxiety (Chronic) History of DVT (deep vein thrombosis) (Chronic) PVD (peripheral vascular disease) (Chronic) CKD (chronic kidney disease), stage III (Chronic) Osteopenia (Chronic) Hospital Course and Treatment Operations: None, - - Right cephalomedullary nail. Procedures: 2-D Echocardiogram Summary of Care Provided: The patient is a 77 year old F seen in the emergency room at [facility] with chief complaint of 3 episodes over the past week of sudden right arm weakness, patient stated that she was unable to move her arm for a few minutes at a time. This then resolves. Workup in the emergency room included an EKG which showed a sinus rhythm at 83, CBC was normal, chemistry study showed a creatinine of 1.25, troponin was negative, CTA of the head showed no stenosis or hemorrhage, there were small areas in the basal ganglia and right thalamus which represented old lacunar infarcts. Patient was admitted to PCU, echocardiogram was obtained and it showed no evidence of thrombus or septal perforation. She was seen by PT and OT. MRI obtained of the brain showed an acute lacunar infarct of the right centrum semiovale. Neurology was not able to see the patient in consultation as they did not come in on that Sunday. I communicated with Dr. Nichols by phone, he advised placing the patient on Plavix and aspirin and have patient follow-up with him in the office in 2 weeks. On 04/06/18 patient was seen and examined and felt to be in stable condition for discharge home Discharge Activity: Return to Normal Activity, - - use cane if needed Home Medications: Medications to take at Discharge Anagrelide HCl [Agrylin] 0.5 mg PO TID 01/22/18 Aspirin [Aspirin, Baby] 81 mg PO DAILY@0800 01/22/18 Buspirone HCl 30 mg PO BID 01/22/18 Cilostazol [Pletal] 100 mg PO BIDAC 01/22/18 Clonidine HCl 0.1 mg PO BID 01/22/18 Colestipol Tablet [Colestid Tablet] 2 gm PO TID 01/22/18 Diltiazem HCl [Cardizem] 120 mg PO BID 01/22/18 Fluoxetine [Prozac] 20 mg PO DAILY 01/22/18 Hydroxyurea [Hydrea] 500 mg PO BID 01/22/18 Levothyroxine [Synthroid] 75 mcg PO DAILY 01/22/18 Lisinopril [Zestril] 10 mg PO DAILY 01/22/18 Mirtazapine [Remeron] 15 mg PO QHS 01/22/18 Pantoprazole Sodium [Protonix] 40 mg PO DAILY 01/22/18 Topiramate [Topamax] 100 mg PO BID 01/22/18 Polyethylene Glycol 3350 [Miralax] 17 gm PO DAILY PRN 04/05/18 Aspirin [Aspirin, Baby] 81 mg PO DAILY@0800 tab.chew 04/06/18 Atorvastatin Calcium [Lipitor] 40 mg PO QHS #30 tab 04/06/18 Clopidogrel Bisulfate [Plavix] 75 mg PO DAILY #30 tab 04/06/18 Following Prescrptions Were Given to Patient: Atorvastatin Calcium [Lipitor] 40 mg PO QHS #30 tab Clopidogrel Bisulfate [Plavix] 75 mg PO DAILY #30 tab Primary Care Physician: Adam Lowe DO [Primary Care Provider] - Please follow up with your Primary Care Physician in: in 1 week Please Follow Up With: Pastor Nichols MD When: in 2 weeks [phone] Disposition: Home Minutes spent on discharge:: 32 Patient Condition:: Stable Medical Necessity - Tobacco Use Smoking Status: Former smoker Tobacco Use: Non-smoker Meaningful Use Info Meaningful Use Diagnoses (Choose all that apply): Ischemic CVA - CVA Therapy Assessed for PT,OT and/or ST?: Yes - Ischemic Stroke Antithrombotic order at d/c?: Yes Dx of Atrial fib/flutter?: No Anticoagulant at discharge?: No Reason anticoagulant not ordered: Treatment not Indicated Statins at discharge?: Yes Primary Dx Acute Ischemic CVA?: Yes IV tPA ordered during stay?: No Reason IV t-PA not ordered: Treatment not Indicated Code Visit Inpatient E&M: 54306 Disch Hosp
== END 2018-04-06 15:36 | disposition home or self-care (01) | DRG 66 ==
LOC: ED 17:56 → PCU 20:35
PROVIDERS: Admitting Provider Hospitalist; Emergency Provider Emergency Medicine; Family Provider Family Medicine; PCP Family Medicine; Visit Provider Internal Medicine
DX: I63.9 Cerebral infarction, unspecified (principal); I12.9 Hypertensive chronic kidney disease with stage 1 through stage 4 chronic kidney disease, or unspecified chronic kidney disease; N18.3 Chronic kidney disease, stage 3 (moderate); F32.9 Major depressive disorder, single episode, unspecified; G83.21 Monoplegia of upper limb affecting right dominant side; E03.9 Hypothyroidism, unspecified; F41.9 Anxiety disorder, unspecified; Z86.718 Personal history of other venous thrombosis and embolism; I73.9 Peripheral vascular disease, unspecified; M85.80 Other specified disorders of bone density and structure, unspecified site; Z82.3 Family history of stroke; Z87.891 Personal history of nicotine dependence; Z79.02 Long term (current) use of antithrombotics/antiplatelets; D47.3 Essential (hemorrhagic) thrombocythemia
CPT/HCPCS: 36415; 70496; 70498; 70551; 71045; 80048; 80061; 82962; 84484; 85025; 85610; 85730; 92523; 93005; 93306; 97162; 97165; 99283; Q9967; A4216

== ENCOUNTER → 2018-05-03 09:19 | Outpatient (CLI) | payer MEDICARE, OTHER, SELFPAY ==
--- NOTE | 2018-05-03 11:55 | EEG_ITS ---
- Electroencephalogram Date of service 05/03/18 This is an 18 channel echoencephalogram performed utilizing the International 10 -20 electrode placement protocol on this 77-year-old female with a history of Virgil affecting the right side apparently has recovered completely. 18 channel electron esophagram is performed utilizing photic stimulation, hyperventilation, and EKG reference leads. Background activity is 9 Hz symmetrically in the posterior leads which attenuates with eye opening. Hyperventilation is performed for 3 minutes with good effort with no lateralizing or epileptiform changes in the post hyperventilatory phase was unremarkable. EKG monitoring was normal sinus rhythm throughout the recording. The patient remained awake throughout the recording without lateralizing or epileptiform changes. Impression: Normal awake electroencephalogram
== END ==
PROVIDERS: Family Provider Family Medicine; PCP Family Medicine; Visit Provider Clinical Nurse Specialist Acute Care
DX: R20.2 Paresthesia of skin (principal); R56.9 Unspecified convulsions
CPT/HCPCS: 95819

== ENCOUNTER 2018-11-30 12:01 | Emergency (ER) | payer MEDICARE, OTHER, SELFPAY ==
[2018-11-13 13:04] VITALS: BMI 19.2
[2018-11-30 12:02] VITALS: BP 101/70; PULSE 103; RESP 18; TEMP 36.6; O2SAT 97; BMI 21.6
--- NOTE | 2018-11-30 12:29 | EKG12_ITS ---
Test Reason : CP Blood Pressure : / mmHG Vent. Rate : 101 BPM Atrial Rate : 101 BPM P-R Int : 170 ms QRS Dur : 084 ms QT Int : 360 ms P-R-T Axes : 028 037 072 degrees QTc Int : 466 ms Sinus tachycardia Otherwise normal ECG Confirmed by FATUMA FINE, ZHAO ([id number]), supervising editor news reel KEVON AHN ([id number]) on 12/02/2018 11:02:47 AM Referred By: JAKY/JERRY Confirmed By:ZHAO BURRIS MD
--- NOTE | 2018-11-30 12:29 | RAD_ITS ---
STUDY: X-RAY CHEST REASON FOR EXAM: Female, 78 years old. Chest pain TECHNIQUE: AP COMPARISON: April 05, 2018 FINDINGS: The lungs are clear and expanded. There is no demonstrated pleural abnormality. Normal size heart. Normal mediastinum and anni. Normal visualized pulmonary arteries. There is atherosclerotic tortuosity of the aortic arch and descending thoracic aorta. There is a dextroscoliosis of the thoracic spine and levoscoliosis of the lumbar spine. Normal visualized ribs, clavicles, and shoulders. There is no demonstrated abnormality of the visualized soft tissue structures of the upper abdomen. RAD/Chest 1 View (Portable) IMPRESSION: 1. Stable, nonacute portable x-ray examination of the chest. Electronically Signed: Ata Gregory MD at 12:58 EDT , Service support ,
[2018-11-30 12:37] VITALS: BP 104/69; PULSE 102; RESP 19; O2SAT 95
[2018-11-30 13:07] LABS: Absolute Lymphocyte Count 0.84 X10^3/ul (0.83-4.51); Absolute Neutrophil Count 3.7 X10^3/uL (2.0-7.7); Basophil# 0.01 X10^3/uL; Basophil% 0.2 % (0-1); Eosinophil# 0.06 X10^3/uL; Eosinophils% 1.2 % (0-5); Hematocrit 39.6 % (37-47); Hemoglobin 12.8 g/dl (12.0-15.0); Lymphocyte # 0.84 X10^3/ul (4.0); Lymphocyte % 16.3 % (19-41); Mean Corp Hgb Conc 32.3 g/gl (32-36); Mean Corpuscular Hgb 37.6 pg (27.0-32.0); Mean Corpuscular Volume 116.5 fL (81-99); Mean Platelet Vol. 10.1 fl (6.2-12.0); Monocyte# 0.52 X10^3/uL; Monocyte% 10.1 % (0-10); POSITIVE COUNT NO; POSITIVE DIFFERENTIAL NO; POSITIVE MORPHOLOGY NO; Platelet Count 486 K/mm3 (150-450); RBC Distribution Width CV 13.3 % (11.6-14.6); RBC Distribution Width SD 55.9 fl (35.1-43.9); White Blood Count 5.1 K/mm3 (4.4-11.0)
[2018-11-30 13:25] LABS: Anion Gap 5 (5-15); BUN 41 mg/dL (7-18); BUN/Creat Ratio 30.8 RATIO (10-20); Calcium,Total 8.6 mg/dL (8.5-10.1); Chloride 114 mmol/L (98-107); Creatinine, Serum 1.33 mg/dL (0.55-1.02); EST Glomerular Filtration Rate 41 mL/min (>60); Est Glom Filt Rate - Afr Amer 50 mL/min (>60); Estimated Creatinine Clearance 28.46 ml/min; Glucose 119 mg/dL (74-106); Potassium 4.2 mmol/L (3.5-5.1); Sodium Level 142 mmol/L (136-145)
--- NOTE | 2018-11-30 13:39 | ED.VISSUMM ---
- ER Visit Summary Date of Service: 11/30/18 Chief Complaint: [] Transient chest pain lasted 1 minute today History of Present Illness: The patient is a 78 F [] patient reports she has a history of chronic angina for which she takes nitroglycerin, today she had a transient episode which she describes as chest pain that lasted for less than 1 minute she took a nitroglycerin her pain went away completely, she is having no pain she has not been having more chest pain she is had no fever no cough no abdominal pain. She does indicate that she took a omega-3 tablet the other day for general health purposes and after taking that immediately she began vomiting, she believes the omega-3 had some type of shellfish type component to it which she is allergic to so she is not taking it since but because of the episode with the shellfish omega-3 she came in for evaluation, she is eating and drinking well she is having no abdominal pain bowel bladder habits been normal she is followed by Dr. Fuentes cardiovascular status is very stable she has no history of CT PE or DVT Indicates she did have a cardiac stress test that was unremarkable in fact there is one from 2017 nuclear that showed no signs of ischemia ejection fraction 75% She assures me that she feels fine right now when she actually wants to go home but is willing to stay for an evaluation, please note she is on Plavix and aspirin related to a prior stroke about a year ago Physical Examination: [] Her vital signs are within normal range General, no distress resting comfortably HEENT is generally unremarkable The neck is supple no adenopathy Cardiovascular, regular rate and rhythm Lungs, clear bilateral Abdomen, soft nontender Extremities, no clubbing cyanosis or edema Neurologic, awake alert answering questions appropriately moving all 4 extremities Test Results: [] Emergency Department Course and Treatment: [] The patient's EKG sinus rhythm no acute injury pattern rate is 100 given all the above screening labs are obtained Treatment Plan: [] Patient screening labs are all negative, her chest x-ray is unremarkable, on reevaluation she is had no recurrence of the chest pain again we discussed the history with her in detail she had chest pain for less than 1 minute that resolved with her nitroglycerin, she is not been having any type of acceleration of chest pain that is chronic, she had a negative nuclear stress test in 2017 she is followed by Dr. Fuentes of cardiology, we discussed inpatient versus outpatient management she states she feels fine she wants to go home does not wish to be admitted, she had concerns that using the omega 3 vitamin could have caused some issues that explained her she should avoid that medication at this time and follow-up with her physicians and return for change in symptoms and she agrees Disposition: [] Home stable patient declined admission Impression: [] Transient chest pain resolved This note was generated with [employer] dictation software. It may contain incorrect words, spelling, and punctuation that were not noted in review of the chart prior to signing ED Disposition - Plan for ED Patient: Referrals: Adam Lowe DO [Primary Care Provider] -
--- NOTE | 2018-11-30 14:50 | ED.DEP ---
ED Disposition - Plan for ED Patient: Instructions: ED Chest Pain Atypical Unkn Cause Referrals: Adam Lowe DO [Primary Care Provider] -
[2018-11-30 15:20] VITALS: BP 108/63; PULSE 66; RESP 16; O2SAT 96
[2018-11-30 15:22] VITALS: BP 108/63; PULSE 66; RESP 16; O2SAT 96
== END 2018-11-30 15:24 | disposition home or self-care (01) ==
LOC: ED 13:13
PROVIDERS: Emergency Provider Emergency Medicine; Family Provider Family Medicine; PCP Family Medicine
DX: R07.9 Chest pain, unspecified (principal); Z86.73 Personal history of transient ischemic attack (TIA), and cerebral infarction without residual deficits
CPT/HCPCS: 71045; 80048; 84484; 85025; 93005; 99285; A4216

== ENCOUNTER → 2018-12-06 16:01 | Outpatient (CLI) | payer MEDICARE, OTHER, SELFPAY ==
[2018-11-30 12:02] VITALS: BMI 21.6
[2018-12-06 17:24] LABS: Hemoglobin 12.4 g/dl (12.0-15.0)
[2018-12-06 17:38] LABS: Erythrocyte Sedimentation Rate 17 mm/hr (0-30)
[2018-12-06 18:49] LABS: Thyroid Stim Hormone (TSH) 0.01 uIU/mL (0.358-3.74)
== END ==
PROVIDERS: Family Provider Family Medicine; PCP Family Medicine; Referring Provider Family Medicine; Visit Provider Family Medicine
DX: R53.83 Other fatigue (principal)
CPT/HCPCS: 36415; 83970; 84443; 85018; 85652

== ENCOUNTER → 2018-12-20 14:10 | Outpatient (CLI) | payer MEDICARE, OTHER, SELFPAY ==
[2018-11-30 12:02] VITALS: BMI 21.6
--- NOTE | 2018-12-20 14:14 | BI_ITS ---
MAMMOGRAPHY - BILATERAL SCREENING 3-D TOMOSYNTHESIS REASON FOR EXAM: Female, 78 years old. Bilateral Screening 3-D tomosynthesis PERTINENT HISTORY: Aunt with breast cancer.. TECHNIQUE: 2-D mammograms and 3-D Tomosynthesis of the breast (s) were performed. CAD was performed. COMPARISON: None. FINDINGS: The breast composition is composed of scattered fibroglandular density. Scattered benign calcifications are seen. No dense spiculated masses or suspicious microcalcifications are identified. No architectural distortion is identified. There is no skin thickening or retraction. There has been no significant change since the prior study. BI/SCREENING MAMM (CAD), BILAT IMPRESSION: No mammographic signs of malignancy. Routine yearly mammograms recommended. ASSESSMENT CATEGORY: BIRADS Category 1: Negative. A letter regarding these results will be sent to the patient by the facility within 30 days. FOLLOW UP RECOMMENDATION: Yearly follow up mammogram recommended. (A) Approximately 10% of breast cancers are not detected by mammography. A normal mammogram should not delay biopsy of a clinically suspicious abnormality. Electronically Signed: Fernando Chauhan MD at 8:35 EDT , Service support ,
== END ==
PROVIDERS: Family Provider Family Medicine; PCP Family Medicine; Referring Provider Family Medicine; Visit Provider Family Medicine
DX: Z12.31 Encounter for screening mammogram for malignant neoplasm of breast (principal)
CPT/HCPCS: 77063; 77067

== ENCOUNTER → 2018-12-28 10:45 | Outpatient (CLI) | payer MEDICARE, OTHER, SELFPAY ==
[2018-11-30 12:02] VITALS: BMI 21.6
[2018-12-28 12:03] LABS: Thyroid Stim Hormone (TSH) 0.46 uIU/mL (0.358-3.74)
== END ==
PROVIDERS: Family Provider Family Medicine; PCP Family Medicine; Referring Provider Family Medicine; Visit Provider Family Medicine
DX: E05.90 Thyrotoxicosis, unspecified without thyrotoxic crisis or storm (principal)
CPT/HCPCS: 36415; 84443

== ENCOUNTER 2018-12-28 14:37 | Emergency (ER) | payer MEDICARE, OTHER, SELFPAY ==
[2018-12-28 14:39] VITALS: BP 183/100; PULSE 60; RESP 12; TEMP 36.4; O2SAT 100; BMI 20.2
[2018-12-28 14:46] VITALS: BP 182/99; PULSE 62; RESP 14; O2SAT 100
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
[2018-12-28] MEDS: Acetaminophen 500 MG Tablet 1000 MG PO (15:37)
== END 2018-12-28 17:14 | disposition home or self-care (01) ==
PROVIDERS: Emergency Provider Emergency Medicine; Family Provider Family Medicine; PCP Family Medicine
DX: S00.83XA Contusion of other part of head, initial encounter (principal); S20.219A Contusion of unspecified front wall of thorax, initial encounter; V43.52XA Car driver injured in collision with other type car in traffic accident, initial encounter; Y93.9 Activity, unspecified; Y92.410 Unspecified street and highway as the place of occurrence of the external cause; Y99.9 Unspecified external cause status; I10 Essential (primary) hypertension; E78.00 Pure hypercholesterolemia, unspecified; Z86.73 Personal history of transient ischemic attack (TIA), and cerebral infarction without residual deficits; E05.90 Thyrotoxicosis, unspecified without thyrotoxic crisis or storm
CPT/HCPCS: 36415; 70450; 71046; 71120; 72125; 84443; 99284

== ENCOUNTER → 2019-01-02 09:58 | Outpatient (CLI) | payer MEDICARE, OTHER, SELFPAY ==
[2018-12-28 14:39] VITALS: BMI 20.2
[2019-01-02 11:26] LABS: Vitamin B12 1456 pg/mL (211-911)
[2019-01-02 11:56] LABS: ALB/GLOB Ratio 0.9 RATIO (0.9-2.4); AST(SGOT) 26 U/L (15-37); Alanine Aminotransfer ALT/SGPT 25 U/L (13-56); Albumin, Serum 3.7 g/dL (3.2-5.0); Alkaline Phosphatase 116 U/L (45-117); Anion Gap 7 (5-15); BUN 31 mg/dL (7-18); Calcium,Total 8.7 mg/dL (8.5-10.1); Chloride 100 mmol/L (98-107); Creatinine, Serum 1.29 mg/dL (0.55-1.02); EST Glomerular Filtration Rate 43 mL/min (>60); Est Glom Filt Rate - Afr Amer 52 mL/min (>60); Globulin 3.9 g/dL (2.2-4.2); Glucose 100 mg/dL (74-106); Potassium 3.8 mmol/L (3.5-5.1); Protein, Total 7.6 g/dL (6.4-8.2); Sodium Level 133 mmol/L (136-145)
== END ==
PROVIDERS: Family Provider Family Medicine; PCP Family Medicine; Referring Provider Family Medicine; Visit Provider Family Medicine
DX: R53.83 Other fatigue (principal); I10 Essential (primary) hypertension
CPT/HCPCS: 36415; 80053; 82607; 82746

== ENCOUNTER → 2019-01-28 16:08 | Outpatient (CLI) | payer MEDICARE, OTHER, SELFPAY | PROVIDERS: Family Provider Family Medicine; PCP Family Medicine; Referring Provider Family Medicine; Visit Provider Family Medicine | DX: E05.90 Thyrotoxicosis, unspecified without thyrotoxic crisis or storm (principal) | CPT/HCPCS: 36415; 84443 ==

== ENCOUNTER → 2019-02-05 12:56 | Outpatient (CLI) | payer MEDICARE, OTHER, SELFPAY ==
--- NOTE | 2019-02-05 13:00 | ADUL_ITS ---
Reason For Study: atherosclerosis Right Velocities Common Iliac Artery, dist = 80.1 cm./sec. Common Femoral Artery, mid = 63.6 cm./sec. Supf Femoral Artery, prox = 68.0 cm./sec. Supf Femoral Artery, mid = 55.9 cm./sec. Supf Femoral Artery, dist. = 79.0 cm./sec. Profunda Femoral Artery = 30.6 cm./sec. Popliteal Artery, prox. = 100.3 cm./sec. Popliteal Artery, mid = 103.9 cm./sec. Popliteal Artery, dist = 33.2 cm./sec. Post. Tibial Artery, prox = 57.8 cm./sec. Post. Tibial Artery, mid = 63.5 cm./sec. Post. Tibial Artery, dist = 57.0 cm./sec. Peroneal Artery, prox = 60.3 cm./sec. Ant. Tibial Artery, dist = 46.0 cm./sec. Ant. Tibial Artery, mid = 69.0 cm./sec. Ant. Tibial Artery, prox = 38.3 cm./sec. Peroneal Artery, mid = 69.0 cm./sec. Peroneal Artery,dist = 47.1 cm./sec. Interpretation Summary 1. right leg with no stenosis and triphasic flow throughout. Ordering Physician: Aime Hess Referring Physician: Adam Lowe Performed By: Moni Lang, EZEQUIEL, RVT
--- NOTE | 2019-02-05 13:07 | ART_ITS ---
Reason For Study: CLAUDICATION, ATHEROSCLEROSIS Procedure A bilateral lower extremity continuous wave Doppler with analog waveform analysis and ankle brachial indexes. Left Segmental Pressures Left brachial= 162mmHg. Left posterior tibial artery = 178mmHg. Left dorsalis pedis artery = 166mmHg. The left dorsalis pedis waveforms are triphasic. The left posterior tibial artery waveforms are triphasic. Right Segmental Pressures Right brachial= 171mmHg. Right posterior tibial artery = 178mmHg. Right dorsalis pedis artery = 184mmHg. The right dorsalis pedis waveforms are triphasic. The right posterior tibial artery waveforms are triphasic. Indices The right ankle brachial index by the dorsalis pedis is 1.08. The right ankle brachial index by the posterior tibial artery is 1.04. The left ankle brachial index by the dorsalis pedis is 0.97. The left ankle brachial index by the posterior tibial artery is 1.04. Interpretation Summary 1. no evidence of bilateral occlussive disease with triphasic flow and JIMENEZ 1.08/1.04. Ordering Physician: Aime Hess Referring Physician: Aime Hess Performed By: Moni Lang RVT, [facility]
== END ==
PROVIDERS: Family Provider Family Medicine; PCP Family Medicine; Referring Provider Surgery Vascular Surgery; Visit Provider Surgery Vascular Surgery
DX: I70.213 Atherosclerosis of native arteries of extremities with intermittent claudication, bilateral legs (principal); Z48.812 Encounter for surgical aftercare following surgery on the circulatory system; I77.1 Stricture of artery; M79.602 Pain in left arm; E07.9 Disorder of thyroid, unspecified; D47.3 Essential (hemorrhagic) thrombocythemia; I10 Essential (primary) hypertension; Z87.891 Personal history of nicotine dependence
CPT/HCPCS: 93922; 93926

== ENCOUNTER 2019-06-23 13:22 | Emergency (ER) | payer MEDICARE, OTHER, SELFPAY ==
[2019-06-23 13:23] VITALS: BP 137/96; PULSE 99; RESP 16; TEMP 36.6; O2SAT 98; BMI 20.7
--- NOTE | 2019-06-23 14:16 | EKG12_ITS ---
Test Reason : ILNESS Blood Pressure : / mmHG Vent. Rate : 091 BPM Atrial Rate : 091 BPM P-R Int : 200 ms QRS Dur : 086 ms QT Int : 360 ms P-R-T Axes : 035 024 082 degrees QTc Int : 442 ms Normal sinus rhythm Normal ECG Confirmed by ELVIS RIVERA ([id number]), book editor KEVON AHN ([id number]) on 06/30/2019 9:05:54 AM Referred By: JERRY Confirmed By:ELVIS RIVERA
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
[2019-06-23 14:49] LABS: Absolute Lymphocyte Count 0.72 X10^3/uL (0.83-4.51); Absolute Neutrophil Count 4.4 X10^3/uL (2.0-7.7); Basophil# 0.04 X10^3/uL; Basophil% 0.7 % (0-1); Eosinophil# 0.03 X10^3/uL; Eosinophils% 0.5 % (0-5); Hematocrit 46.8 % (37-47); Hemoglobin 15.7 g/dL (12.0-15.0); Lymphocyte # 0.72 X10^3/ul (4.0); Lymphocyte % 12.5 % (19-41); Mean Corp Hgb Conc 33.5 g/dL (32-36); Mean Corpuscular Hgb 39.8 pg (27.0-32.0); Mean Corpuscular Volume 118.8 fL (81-99); Mean Platelet Vol. 11.2 fl (6.2-12.0); Monocyte# 0.55 X10^3/uL; Monocyte% 9.5 % (0-10); NRBC Flagged by Analyzer 0 % (0-5); Neutrophil # 4.39 X10^3/uL (2.7-7.7); Neutrophil % 76.1 % (47-70); Platelet Count 255 K/mm3 (150-450); RBC Distribution Width CV 12.3 % (11.6-14.6); RBC Distribution Width SD 54.4 fl (35.1-43.9); Red Blood Count 3.94 M/mm3 (4.2-5.4); White Blood Count 5.8 K/mm3 (4.4-11.0)
--- NOTE | 2019-06-23 14:51 | ED.VIS.GEN ---
History of Present Illness Chief Complaint: General Illness Informant: Patient Onset: Days Current Severity: Mild Narrative: Patient complains of copious diarrhea for the last for 5 days she indicates she is actually able to eat and drink when she eats Cheerios the diarrhea gets better she is had no exposure to antibiotics anyone has been ill tainted food she has a history of C. difficile possibly 10 years ago nothing recent she has no fever cough abdominal pain she feels fatigued because of the constant running to the bathroom to have bowel movements, she describes the diarrhea is watery Past Medical History - Allergies and Home Meds Allergies/Adverse Reactions: Allergies dichloralphenazone [From Midrin] Allergy (Verified 06/23/19 13:26) Other isometheptene mucate [From Midrin] Allergy (Verified 06/23/19 13:26) Other lactose Adverse Reaction (Verified 06/23/19 13:26) Upset Stomach shellfish derived Adverse Reaction (Verified 06/23/19 13:26) Vomiting Primary Care Physician: Adam Lowe DO [COURTESY STAFF PHYSICIAN] - Past Medical History: - - Includes as above Surgical History: hysterectomy, tonsillectomy, - Smoking Status: Former smoker - Family History Maternal Family History: Family History (Last Reviewed 11/13/18 @ 12:58 by Nevaeh Coyle) Father Heart disease Mother CVA (cerebral vascular accident) Family History: Reports: Stroke Additional Family History: Aunt with breast cancer Paternal Family History: Family History (Last Reviewed 11/13/18 @ 12:58 by Nevaeh Coyle) Father Heart disease Mother CVA (cerebral vascular accident) Family History: Reports: Heart Disease Review of Systems General: Denies: Chills, Fever, Sweats Eyes: Denies: Visual changes - bilaterally, Diplopia ENT: Denies: Rhinorrhea, Sore throat Cardiovascular: Denies: Chest pain, Palpitations Respiratory: Denies: Dyspnea, Cough, Dyspnea on exertion Gastrointestinal: Reports: Diarrhea. Denies: Abdominal pain, Nausea, Vomiting, Melena, Hematochezia Genitourinary: Denies: Dysuria, Hematuria, Frequency Musculoskeletal: Denies: Back pain, Extremity Pain Skin: Denies: Rash, Wounds Neurological: Denies: Headache, Weakness, Numbness Physical Exam Vital Signs/Narrative: Vital Signs Temp Pulse Resp BP Pulse Ox 06/23/19 13:23 97.9 F 99 16 137/96 H 98 General: Well nourished, Well developed, No Acute Distress Head: Normocephalic, Atraumatic Eyes: Perrl, EOMI ENT: Moist mucous membranes, No rhinorrhea Neck: Supple, Nontender Cardiovascular: Regular rate, Regular rhythm, No murmurs Respiratory: No distress, CTA bilaterally, Chest nontender Abdomen: Soft, Nontender, Nondistended, Normal bowel sounds Back: Nontender, Normal Inspection Extremities: Nontender, No edema Skin: Normal color, No rash Neurological: Alert, Oriented x3, Cranial nerves II-XII grossly intact, Normal Strength, Normal Sensation Psychological: Normal affect, Normal Mood Diagnostic/Tx/Re-eval - Medical Decision Making She complains of copious diarrhea and fatigue, her vital signs are unremarkable physical exam is unremarkable she is actually hungry and wants to eat and drink here in the department we will provide her some light foods and water screening labs IV fluids creatinine is about 1.9, time is about 1.4 CO2 19, there is screening labs CBC are generally unremarkable EKG shows a sinus rhythm rate of about 90 no acute injury pattern appreciated intervals normal She is IV fluid she is taking oral fluids here without difficulty we discussed inpatient versus outpatient management with her, she is been unable to provide stool samples diarrhea is currently resolved, she does not feel the urge to provide urinalysis and she indicates she has been urinating without difficulty at home IV fluids and oral fluids we discussed inpatient versus outpatient management with her she is couple discharge home at this time continue the fluids and to follow-up with her physicians the next few days return for change in symptoms Home stable Final impression Dehydration, diarrhea resolved ED Disposition - Plan for ED Patient: Diagnosis: Dehydration, Diarrhea Instructions: Treating Diarrhea Referrals: Adam Lowe DO [COURTESY STAFF PHYSICIAN] - Francisco Sneed MD [STAFF PHYSICIAN] -
[2019-06-23 15:06] LABS: AST(SGOT) 27 U/L (15-37); Alanine Aminotransfer ALT/SGPT 29 U/L (13-56); Albumin, Serum 3.7 g/dL (3.2-5.0); Alkaline Phosphatase 90 U/L (45-117); Anion Gap 9 (5-15); BUN 39 mg/dL (7-18); BUN/Creat Ratio 20.9 RATIO (10-20); Bilirubin, Direct 0.13 mg/dL (0.00-0.30); Calcium,Total 9.4 mg/dL (8.5-10.1); Chloride 111 mmol/L (98-107); Creatinine, Serum 1.87 mg/dL (0.55-1.02); EST Glomerular Filtration Rate 28 mL/min (>60); Est Glom Filt Rate - Afr Amer 34 mL/min (>60); Estimated Creatinine Clearance 19.31 ml/min; Globulin 4.6 g/dL (2.2-4.2); Glucose 121 mg/dL (74-106); Lipase 290 U/L (73-393); Potassium 3.9 mmol/L (3.5-5.1); Protein, Total 8.3 g/dL (6.4-8.2); Sodium Level 139 mmol/L (136-145)
[2019-06-23 15:21] LABS: BNP,B-Type NATRIURETIC PEPTIDE 74.8 pg/mL (0-100)
[2019-06-23] MEDS: 0.9% Normal Saline 500 ML IV.SOLN. IV (16:00)
[2019-06-23 16:14] LABS: Red Blood Cells-Urine 0 SEEN /hpf (0-5); Squamous Epithelial Cells - UA 0 SEEN /hpf (5-10)
[2019-06-23 16:24] LABS: Color, Urine Yellow (Yellow); Glucose, Dipstick Normal (Normal); Ketone-Dipstick 5 mg/dl (Negative); Leukocyte Esterase-Dipstick 25 /ul (Negative); Nitrite-Dipstick Negative (Negative); Occult Blood-Urine 10 /ul (Negative); Protein-Dipstick 100 mg/dl (Negative); Specific Gravity, Urine 1.025 (1.002-1.030); Urine Bilirubin Dipstick Negative (Negative); Urine Clarity Sl. Cloudy (Clear); Urine Urobilinogen Normal (Normal)
[2019-06-23 16:32] LABS: White Blood Cells 0-5 SEEN /hpf (0-5)
[2019-06-23 16:33] LABS: Bacteria 2+ /hpf (None Seen); Mucous, Urine 1+ /hpf (<or=2+)
[2019-06-23 16:35] LABS: Coarse Granular Cast 0-5 SEEN /lpf (0-5 /lpf); Fine Granular Cast- Urine 0-5 SEEN /lpf (0-5)
[2019-06-23 16:46] VITALS: BP 156/99; PULSE 60
== END 2019-06-23 16:51 | disposition home or self-care (01) ==
LOC: ED 14:55
PROVIDERS: Emergency Provider Emergency Medicine
DX: E86.0 Dehydration (principal); R19.7 Diarrhea, unspecified; R53.83 Other fatigue; Z87.891 Personal history of nicotine dependence; Z79.899 Other long term (current) drug therapy
CPT/HCPCS: 71045; 80048; 80076; 81001; 83690; 83880; 84484; 85025; 93005; 99284

== ENCOUNTER → 2019-10-06 17:10 | Outpatient (CLI) | payer MEDICARE, OTHER, SELFPAY ==
[2019-10-06 18:13] LABS: Hematocrit 34.8 % (37-47); Hemoglobin 11.8 g/dL (12.0-15.0); Mean Corp Hgb Conc 33.9 g/dL (32-36); Mean Corpuscular Hgb 38.8 pg (27.0-32.0); Mean Corpuscular Volume 114.5 fL (81-99); Mean Platelet Vol. 11.9 fl (6.2-12.0); Platelet Count 179 K/mm3 (150-450); RBC Distribution Width CV 13.2 % (11.6-14.6); Red Blood Count 3.04 M/mm3 (4.2-5.4); White Blood Count 5.4 K/mm3 (4.4-11.0)
[2019-10-06 18:48] LABS: Vitamin B12 1093 pg/mL (211-911)
[2019-10-06 18:54] LABS: ALB/GLOB Ratio 0.9 RATIO (0.9-2.4); AST(SGOT) 24 U/L (15-37); Alanine Aminotransfer ALT/SGPT 28 U/L (13-56); Albumin, Serum 3.5 g/dL (3.2-5.0); Alkaline Phosphatase 100 U/L (45-117); Anion Gap 5 (5-15); BUN 30 mg/dL (7-18); BUN/Creat Ratio 23.1 RATIO (10-20); Calcium,Total 9.5 mg/dL (8.5-10.1); Chloride 100 mmol/L (98-107); Cholesterol 125 mg/dL (200); EST Glomerular Filtration Rate 42 mL/min (>60); Est Glom Filt Rate - Afr Amer 51 mL/min (>60); Globulin 3.9 g/dL (2.2-4.2); Glucose 97 mg/dL (74-106); High Density Lipoprotein 75 mg/dL; Potassium 3.7 mmol/L (3.5-5.1); Protein, Total 7.4 g/dL (6.4-8.2); Sodium Level 133 mmol/L (136-145); Triglycerides 94 mg/dL; Very Low Density Lipoprotein 19 mg/dL (5-40)
== END ==
PROVIDERS: Nurse Practitioner Family; PCP Family Medicine; Referring Provider Family Medicine; Visit Provider Family Medicine
DX: R41.3 Other amnesia (principal); E03.9 Hypothyroidism, unspecified; I10 Essential (primary) hypertension; T14.8XXA Other injury of unspecified body region, initial encounter
CPT/HCPCS: 36415; 80053; 80061; 82607; 84443; 85027

== ENCOUNTER → 2019-12-30 15:48 | Outpatient (CLI) | payer MEDICARE, OTHER, SELFPAY ==
[2019-12-30 18:17] LABS: Thyroid Stim Hormone (TSH) 0.01 uIU/mL (0.358-3.74)
== END ==
PROVIDERS: PCP Family Medicine; Visit Provider Family Medicine
DX: E03.9 Hypothyroidism, unspecified (principal)
CPT/HCPCS: 36415; 84443

== ENCOUNTER → 2020-01-26 17:44 | Outpatient (CLI) | payer MEDICARE, OTHER, SELFPAY | PROVIDERS: PCP Family Medicine; Visit Provider Family Medicine | DX: R39.9 Unspecified symptoms and signs involving the genitourinary system (principal) | CPT/HCPCS: 87086; 87088 ==

== ENCOUNTER 2020-01-28 12:08 | Emergency (ER) | payer MEDICARE, OTHER, SELFPAY ==
[2020-01-28 12:09] VITALS: BP 172/109; PULSE 78; RESP 15; TEMP 36.4; O2SAT 97; BMI 18.1
[2020-01-28 12:12] VITALS: BP 172/109; PULSE 90; RESP 16; O2SAT 97
--- NOTE | 2020-01-28 12:46 | CT_ITS ---
STUDY: CT BRAIN WITHOUT CONTRAST REASON FOR EXAM: Female, 79 years old. DIZZINESS RADIATION DOSAGE (If Supplied By Facility): CTDIvol = ( 60.81 ) mGy, DLP = ( 998.67 ) mGycm TECHNIQUE: Transaxial CT imaging of the brain was performed without administration of intravenous contrast material. Individualized dose optimization techniques were used for this CT. COMPARISON: Comparison is made with prior examination dated December 28, 2008. FINDINGS: Normal soft tissue structures. Normal calvarium. There is mild cerebral atrophy with widening of the extra-axial spaces and ventricular dilatation. There are areas of decreased attenuation within the white matter tracts of the supratentorial brain, consistent with microvascular disease changes. Normal basal ganglia and thalami. Normal brainstem. There is moderate cerebellar atrophy. There is no intracranial hemorrhage. There are no findings of an acute ischemic infarction. Atherosclerotic calcification of the vertebral arteries and cavernous portions of the internal carotid arteries bilaterally. Normal visualized paranasal sinuses. CT/Brain/Head without Contrast IMPRESSION: Chronic involutional changes of the brain. Electronically Signed: Adolfo Pena, at 14:34 EDT , Service support ,
--- NOTE | 2020-01-28 12:53 | ED.VISSUMM ---
- ER Visit Summary Date of Service: 01/28/20 Chief Complaint: Dizziness History of Present Illness: The patient is a 79 F who presents with dizziness that began yesterday. Patient states she feels lightheaded. Patient states this is worse when she ambulates. Patient states it gets better when she lays flat. Patient denies any spinning sensation. Patient states that dizziness has been constant since last night but has been waxing and waning. Patient states she was able to eat breakfast today. Patient states that after eating breakfast she went and laid down and started to feel better. Patient is concerned over possible stroke. Patient denies any nausea or vomiting. Patient denies any chest pain or shortness of breath. Patient denies any visual or hearing changes. Physical Examination: Vital signs are stable. Patient is afebrile. Patient is in no acute distress. Pupils are equal, round, and reactive to light bilaterally. Extraocular muscles are intact. There is no nystagmus. Oral mucosa is pink and moist. Neck is supple. Trachea is midline. There is no JVD noted. Heart was regular rate and rhythm. Lungs are clear and equal bilaterally. Abdomen is soft. Bowel sounds are normal. There is no tenderness. There is no rebound or guarding noted. Skin is warm dry. Cranial nerves II through XII are intact. There are no focal motor or sensory deficits noted. Extremities are intact. There is no calf tenderness or edema. Test Results: CBC showed a mild thrombocytosis of 560. Metabolic profile showed a mild hyponatremia of 127 and a mild hypochloremia of 96. Urinalysis does not show any evidence of urinary tract infection. Portable chest x-ray was obtained. There is no acute cardiopulmonary process. CT scan of the brain was obtained. There are chronic changes but no acute intracranial abnormality. These were interpreted by the radiologist and reviewed by myself. Emergency Department Course and Treatment: Patient was given a dose of oral Valium here. Patient was feeling better on reevaluation. Patient was also given IV fluids. Patient was given a prescription for Valium to take as needed for the dizziness. Patient was instructed to follow-up with her primary care physician in 5 to 7 days. Patient understood and was agreeable with the plan. All questions were answered. Disposition: Discharge home Impression: 1. Dizziness This note was generated with [employer] software. It may contain incorrect words, spelling, and punctuation that were not noted in review of the chart prior to signing ED Disposition - Plan for ED Patient: Disposition: Home or Assisted Living Diagnosis: Dizziness Instructions: ED Dizziness [facility] Prescriptions: Diazepam [Valium] 2 mg PO TID PRN PRN #10 tab PRN Reason: Vertigo Prescription Printed Referrals: Keaton Smith MD [Primary Care Provider] - 3-5 Days
[2020-01-28 12:58] LABS: Absolute Lymphocyte Count 0.63 X10^3/uL (0.83-4.51); Absolute Neutrophil Count 2.7 X10^3/uL (2.0-7.7); Basophil# 0.02 X10^3/uL; Basophil% 0.5 % (0-1); Eosinophil# 0.03 X10^3/uL; Eosinophils% 0.8 % (0-5); Hematocrit 37.7 % (37-47); Lymphocyte # 0.63 X10^3/ul (4.0); Lymphocyte % 16.8 % (19-41); Mean Corp Hgb Conc 34.5 g/dL (32-36); Mean Corpuscular Hgb 38.1 pg (27.0-32.0); Mean Corpuscular Volume 110.6 fL (81-99); Mean Platelet Vol. 9.7 fl (6.2-12.0); Monocyte# 0.32 X10^3/uL; Monocyte% 8.5 % (0-10); NRBC Flagged by Analyzer 0 % (0-5); Neutrophil # 2.74 X10^3/uL (2.7-7.7); Neutrophil % 73.1 % (47-70); POSITIVE MORPHOLOGY YES; Platelet Count 560 K/mm3 (150-450); RBC Distribution Width CV 12.1 % (11.6-14.6); RBC Distribution Width SD 47.8 fl (35.1-43.9); Red Blood Count 3.41 M/mm3 (4.2-5.4); White Blood Count 3.8 K/mm3 (4.4-11.0)
[2020-01-28 13:00] LABS: Differential Indicated SCAN CRITERIA MET
[2020-01-28 13:06] LABS: International Normalized Ratio 1.1; Prothrombin Time (Protime)PT. 13.2 SECONDS (11.7-14.9)
[2020-01-28 13:16] LABS: ALB/GLOB Ratio 0.9 RATIO (0.9-2.4); AST(SGOT) 32 U/L (15-37); Alanine Aminotransfer ALT/SGPT 27 U/L (13-56); Albumin, Serum 3.5 g/dL (3.2-5.0); Alkaline Phosphatase 105 U/L (45-117); Anion Gap 7 (5-15); BUN 22 mg/dL (7-18); BUN/Creat Ratio 22.5 RATIO (10-20); Chloride 96 mmol/L (98-107); Creatinine, Serum 0.98 mg/dL (0.55-1.02); EST Glomerular Filtration Rate 59 mL/min (>60); Est Glom Filt Rate - Afr Amer 71 mL/min (>60); Estimated Creatinine Clearance 36.43 ml/min; Glucose 99 mg/dL (74-106); Potassium 4.3 mmol/L (3.5-5.1); Protein, Total 7.5 g/dL (6.4-8.2); Sodium Level 127 mmol/L (136-145)
[2020-01-28] MEDS: diazePAM 5 MG Tablet 2.5 MG PO (13:21)
[2020-01-28 13:27] LABS: Platelet Estimate MOD INC (ADEQ); Red Cell Morphology NORM C+C NORMAL (NORM C&C)
[2020-01-28 13:43] LABS: Red Blood Cells-Urine 0 SEEN /hpf (0-5); Squamous Epithelial Cells - UA 0 SEEN /hpf (5-10); White Blood Cells 0 SEEN /hpf (0-5)
[2020-01-28 13:44] LABS: Color, Urine Yellow (Yellow); Glucose, Dipstick Normal (Normal); Ketone-Dipstick Negative (Negative); Leukocyte Esterase-Dipstick Negative /ul (Negative); Nitrite-Dipstick Negative (Negative); Occult Blood-Urine Negative /ul (Negative); Protein-Dipstick Negative (Negative); Urine Bilirubin Dipstick Negative (Negative); Urine Clarity Sl. Cloudy (Clear); Urine Urobilinogen Normal (Normal)
[2020-01-28 13:49] LABS: Bacteria 3+ /hpf (None Seen); Mucous, Urine RARE /hpf (<or=2+)
--- NOTE | 2020-01-28 13:58 | RAD_ITS ---
STUDY: X-RAY CHEST REASON FOR EXAM: Female, 79 years old. Intermittent dizziness since the weekend. Fell on Sunday TECHNIQUE: Single AP portable view of the chest. COMPARISON: Comparison is made with prior examination dated June 15, 2019. FINDINGS: EKG electrodes are seen. The lungs are clear and expanded. There is no demonstrated pleural abnormality. Normal size heart. Normal mediastinum and anni. Normal visualized pulmonary arteries. There is atherosclerotic tortuosity of the aortic arch and descending thoracic aorta. There is a dextroscoliosis of the thoracic spine. Normal visualized ribs, clavicles, and shoulders. There is no demonstrated abnormality of the visualized soft tissue structures of the upper abdomen. RAD/Chest 1 View (Portable) IMPRESSION: No acute abnormality is seen. Electronically Signed: Adolfo Pena, at 14:31 EDT , Service support ,
[2020-01-28 14:15] VITALS: BP 177/115; PULSE 75; RESP 19; O2SAT 95
[2020-01-28 14:23] VITALS: BP 158/107; BP 164/109; BP 164/111; PULSE 84; PULSE 85; PULSE 88
[2020-01-28 16:46] VITALS: BP 184/103; PULSE 68; RESP 18; O2SAT 96
== END 2020-01-28 16:50 | disposition home or self-care (01) ==
PROVIDERS: Emergency Provider Emergency Medicine; PCP Family Medicine
DX: R42 Dizziness and giddiness (principal); R35.0 Frequency of micturition; R53.1 Weakness
CPT/HCPCS: 70450; 71045; 80053; 81001; 84484; 85025; 85610; 85730; 99285; J7030; J7040; A4216

== ENCOUNTER → 2020-02-06 15:13 | Outpatient (CLI) | payer MEDICARE, OTHER, SELFPAY ==
[2020-01-28 12:09] VITALS: BMI 18.1
[2020-02-06 17:56] LABS: Absolute Lymphocyte Count 0.94 X10^3/uL (0.83-4.51); Basophil# 0.02 X10^3/uL; Basophil% 0.6 % (0-1); Eosinophil# 0.01 X10^3/uL; Eosinophils% 0.3 % (0-5); Hematocrit 36.1 % (37-47); Hemoglobin 11.9 g/dL (12.0-15.0); Lymphocyte # 0.94 X10^3/ul (4.0); Lymphocyte % 29.1 % (19-41); Mean Corpuscular Hgb 38.8 pg (27.0-32.0); Mean Corpuscular Volume 117.6 fL (81-99); Mean Platelet Vol. 9.6 fl (6.2-12.0); Monocyte# 0.21 X10^3/uL; Monocyte% 6.5 % (0-10); NRBC Flagged by Analyzer 0 % (0-5); Neutrophil # 2.04 X10^3/uL (2.7-7.7); Neutrophil % 63.2 % (47-70); Platelet Count 248 K/mm3 (150-450); RBC Distribution Width CV 13.7 % (11.6-14.6); Red Blood Count 3.07 M/mm3 (4.2-5.4); White Blood Count 3.2 K/mm3 (4.4-11.0)
[2020-02-06 18:09] LABS: Thyroid Stim Hormone (TSH) 0.06 uIU/mL (0.358-3.74)
== END ==
PROVIDERS: PCP Family Medicine; Visit Provider Family Medicine
DX: K52.9 Noninfective gastroenteritis and colitis, unspecified (principal); E03.9 Hypothyroidism, unspecified
CPT/HCPCS: 36415; 84443; 85025

== ENCOUNTER → 2020-03-11 10:41 | Outpatient (CLI) | payer MEDICARE, OTHER, SELFPAY ==
--- NOTE | 2020-03-11 10:46 | ART_ITS ---
Reason For Study: Peripheral arterial disease Procedure A bilateral lower extremity continuous wave Doppler with analog waveform analysis and ankle brachial indexes. Left Segmental Pressures Left brachial= 142mmHg. Left posterior tibial artery = 159mmHg. Left dorsalis pedis artery = 150mmHg. The left dorsalis pedis waveforms are triphasic. The left posterior tibial artery waveforms are triphasic. Right Segmental Pressures Right brachial= 136mmHg. Right posterior tibial artery = 164mmHg. Right dorsalis pedis artery = 152mmHg. The right dorsalis pedis waveforms are triphasic. The right posterior tibial artery waveforms are triphasic. Indices The right ankle brachial index by the dorsalis pedis is 1.07. The right ankle brachial index by the posterior tibial artery is 1.15. The left ankle brachial index by the dorsalis pedis is 1.06. The left ankle brachial index by the posterior tibial artery is 1.12. Interpretation Summary Triphasic Doppler waveforms are noted at ankle level bilaterally. Resting ankle-brachial indices are normal bilaterally. There is no evidence of significant arterial occlusive disease in the lower extremities bilaterally. Ordering Physician: Keaton Smith Referring Physician: Keaton Smith Performed By: Julee Carreon RVT and Student
== END ==
PROVIDERS: PCP Family Medicine; Referring Provider Family Medicine; Visit Provider Family Medicine
DX: I73.9 Peripheral vascular disease, unspecified (principal)
CPT/HCPCS: 93922

== ENCOUNTER → 2020-03-30 14:10 | Outpatient (CLI) | payer MEDICARE, OTHER, SELFPAY ==
[2020-03-30 18:03] LABS: Absolute Lymphocyte Count 0.88 X10^3/uL (0.83-4.51); Absolute Neutrophil Count 2.3 X10^3/uL (2.0-7.7); Basophil# 0.02 X10^3/uL; Basophil% 0.5 % (0-1); Eosinophil# 0.05 X10^3/uL; Eosinophils% 1.4 % (0-5); Hematocrit 37.8 % (37-47); Hemoglobin 12.5 g/dL (12.0-15.0); Lymphocyte # 0.88 X10^3/ul (4.0); Lymphocyte % 24.2 % (19-41); Mean Corp Hgb Conc 33.1 g/dL (32-36); Mean Corpuscular Hgb 41.1 pg (27.0-32.0); Mean Corpuscular Volume 124.3 fL (81-99); Monocyte# 0.39 X10^3/uL; Monocyte% 10.7 % (0-10); NRBC Flagged by Analyzer 0 % (0-5); Neutrophil # 2.29 X10^3/uL (2.7-7.7); Neutrophil % 62.9 % (47-70); POSITIVE MORPHOLOGY YES; Platelet Count 385 K/mm3 (150-450); RBC Distribution Width CV 15.3 % (11.6-14.6); RBC Distribution Width SD 71.4 fl (35.1-43.9); Red Blood Count 3.04 M/mm3 (4.2-5.4); White Blood Count 3.6 K/mm3 (4.4-11.0)
[2020-03-30 18:15] LABS: Vitamin B12 1160 pg/mL (211-911)
[2020-03-30 19:10] LABS: Differential Indicated SCAN CRITERIA MET
[2020-03-30 19:13] LABS: Anisocytosis 1+; Platelet Estimate ADEQUATE (ADEQ); Red Cell Morphology N CHROM NORMAL (NORM C&C)
[2020-03-30 19:40] LABS: Ferritin 36 ng/mL (8-252); Folates, (Folic Acid) > 100.00 ng/mL (3.1-55.4); Thyroid Stim Hormone (TSH) 0.13 uIU/mL (0.358-3.74)
== END ==
PROVIDERS: PCP Family Medicine; Referring Provider Family Medicine; Visit Provider Family Medicine
DX: E03.9 Hypothyroidism, unspecified (principal); D64.9 Anemia, unspecified
CPT/HCPCS: 36415; 82607; 82728; 82746; 84443; 85025